=== PATIENT | male | born 1940 | race Caucasian/White ===

== ENCOUNTER 2016-11-10 20:03 | Inpatient (IN) | payer MEDICARE ==
[~2016-11-10] VITALS: Ht 167.6 cm; Wt 75.2 kg
[~2016-11-10 20:03] MED LIST: ASPIRIN 81 MG E81 MG PO; BUMEX2 MG PO; CO Q-10100 MG PO; COLACE100 MG PO; CORDARONE200 MG PO; COUMADIN5 MG PO; COUMADIN7.5 MG PO; FLUTICASONE PRO16 GM NASAL; GLUCOSAMINE HC500 MG PO; K-DUR20 MEQ PO; LASIX20 MG PO; LOFIBRA134 MG PO; NORCO 10/325 TA1 TA1 PO; PACERONE100 MG PO; PRADAXA150 MG PO; PRAVACHOL20 MG PO; TOPROL XL25 MG PO; ULTRAM50 MG PO; VITAMIN D31000 UNI2 PO; ZESTORETIC 20/21 TAB PO; ZYLOPRIM100 MG PO; ZYRTEC-D T1 TAB.SR . PO
[2016-11-10 21:21] LABS: ALBUMIN 3.1 g/dL (3.4-5.0); ANION GAP 15.5 mmol/L (8-16); BILIRUBIN - TOTAL 0.6 mg/dL (0.2-1.3); CALCIUM 8.3 mg/dL (8.5-10.1); CREATININE - SERUM 3.4 mg/dL (0.6-1.3); PROTEIN - SERUM 7.2 g/dL (6.4-8.2)
[2016-11-10 21:23] LABS: POTASSIUM - SERUM 6.5 mmol/L (3.5-5.1)
[2016-11-10 21:27] LABS: BASOPHILS 0.3 % (0.0-2.0); HEMATOCRIT 28.5 % (42.0-54.0); IMMATURE GRANULOCYTES 0.3 % (0-5); LYMPHOCYTES 26.4 % (15-50); MCH 24.6 pg (26.0-34.0); MCHC 31.6 g/dL (31.0-37.0); MCV 77.9 fL (80.0-100.0); MONOCYTES 15.7 % (2-11); NEUTROPHILS 53.3 % (40-80); PLATELET COUNT 296 10x3/uL (130-400); RBC 3.66 10x6/uL (4.20-6.10); RDW 17.8 % (11.5-14.5); WBC 5.7 10x3/uL (4.8-10.8)
[2016-11-10 22:04] LABS: APPEARANCE CLEAR (CLEAR); BILIRUBIN NEGATIVE (NEGATIVE); COLOR YELLOW (YELLOW); GLUCOSE NEGATIVE (NEGATIVE); KETONE NEGATIVE (NEGATIVE); LEUKOCYTE ESTERASE NEGATIVE (NEGATIVE); NITRITE NEGATIVE (NEGATIVE); PROTEIN NEGATIVE (NEGATIVE); UROBILINOGEN NORMAL (NORMAL)
--- NOTE | 2016-11-10 22:30 | NUR ---
RECEIVED TO ROOM 2125 ALERT AND ORIENTED X3 75 Y/O MALE SEEN BY DR SALGADO FORHYPERKALEMIA AND RENAL FAILURE VIA W/C FROM ER. FAMILY MEMBEERS AT SIDE, ONE TO STAY THE NIGHT.ASSIST TO BED W/O DIFF. VSS, TELEMETRY PLACED, SHOWING HR PACED, WITH PACEMAKER ON LEFT. LEFT AC SL INTACT NO R/S NOTED AT SITE. UP AD FREDA W/O DIFF. WELL HEALING SORES NOTED TO BACK AND RT SIDE.PATIENT STATES "THATS WHERE I HAD THE SHINGLES" VOICES NO C/O PAIN OR DISCOMFORT AT THIS TIME. DOES USE CPAP AT NIGHT AT HOME. DOES NOT HAVE HERE IN HOSPITAL. O2 @ 2L NC PLACED ON AT THIS TIME. CONTINUE TO MONITOR.
[2016-11-11] VITALS (7 sets, daily range): BP systolic 97–124; BP diastolic 51–63; Ht 167.6 cm; Wt 75.2 kg
--- NOTE | 2016-11-11 01:45 | NUR ---
EYES CLOSED, RESP UNLAB, NO S/S OF ACUTE DISTRESS NOTED. C/L IN REACH. CONTINUE TO MONITOR.
[2016-11-11 05:10] LABS: ALBUMIN 2.9 g/dL (3.4-5.0); ANION GAP 16.1 mmol/L (8-16); BILIRUBIN - TOTAL 0.73 mg/dL (0.2-1.3); CALCIUM 8.7 mg/dL (8.5-10.1); CARBON DIOXIDE 21.6 mmol/L (21.0-32.0); CREATININE - SERUM 3.1 mg/dL (0.6-1.3); POTASSIUM - SERUM 5.7 mmol/L (3.5-5.1); PROTEIN - SERUM 6.7 g/dL (6.4-8.2)
--- NOTE | 2016-11-11 06:45 | NUR ---
RECEIVED PT REPORT. NO CO PAIN AT THIS TIME. WILL CONTINUE PLAN OF CARE. NO OTHER NEEDS.
--- NOTE | 2016-11-11 07:41 | NUR ---
PT IS ALERT. ASSESSMENT DONE PER FLOWSHEET. NO OTHER NEEDS AT THIS TIME. WILL CONTINUE TO MONITOR.
--- NOTE | 2016-11-11 21:44 | NUR ---
INITIAL ROUNDS COMPLETED AT 1915 HRS. FAMILY AT BEDSIDE. ASSESSMENT COMPLETED AT 1930 HRS. VSS. SR PER CM HR 74. O2 2LNC. LUNGS DIMINISHED IN BASES BILAT. IV TO LAC WITH NS AT 50CC/HR. IV PATENT. TRACE PEDAL EDEMA NOTED. ALERT AND ORIENTED. PM MEDS GIVEN. PT CURRETNLY RESTING WITH EYES CLOSED. RESP EVEN AND REGULAR. SR UP X2, CALL LIGHT WITHIN REACH.
--- NOTE | 2016-11-11 23:58 | NUR ---
PT AWAKE; DENIES ANY DISCOMFORT. WILL CONTINUE TO MONITOR.
[2016-11-12 00:04] VITALS: BP 116/57
--- NOTE | 2016-11-12 01:48 | NUR ---
PT RESTING WITH EYES CLOSED. RESP EVEN AND REGULAR. SR UP X2, CALL LIGHT WITHIN REACH.
--- NOTE | 2016-11-12 04:37 | NUR ---
PT AWAKE; DENIES ANY DISCOMFORT. WILL CONTINUE TO MONITOR.
[2016-11-12 04:39] VITALS: BP 108/61
[2016-11-12 05:50] LABS: BASOPHILS 0.1 % (0.0-2.0); EOSINOPHILS 0.1 % (0-7); HEMATOCRIT 39.6 % (42.0-54.0); HEMOGLOBIN 12.7 g/dL (13.5-17.5); IMMATURE GRANULOCYTES 0.9 % (0-5); LYMPHOCYTES 5.7 % (15-50); MCH 27.7 pg (26.0-34.0); MCHC 32.1 g/dL (31.0-37.0); MCV 86.5 fL (80.0-100.0); MEAN PLATELET VOLUME 9.6 fL (7.4-10.4); NEUTROPHILS 90.2 % (40-80); PLATELET COUNT 342 10x3/uL (130-400); RBC 4.58 10x6/uL (4.20-6.10); RDW 14.7 % (11.5-14.5); WBC 15.8 10x3/uL (4.8-10.8)
[2016-11-12 06:05] LABS: ANION GAP 8.7 mmol/L (8-16); CALCIUM 9.8 mg/dL (8.5-10.1); CARBON DIOXIDE 39.4 mmol/L (21.0-32.0); CREATININE - SERUM 1.6 mg/dL (0.6-1.3); POTASSIUM - SERUM 4.1 mmol/L (3.5-5.1)
--- NOTE | 2016-11-12 06:43 | NUR ---
VSS THROUGHOUT NIGHT. CAF PER CM. PT DENIED ANY DISCOMFORT. NEEDS MET;WILL CONTINUE TO MONITOR.
[2016-11-12 08:00] VITALS: BP 118/61
[2016-11-12] MEDS ORDERED: FUROSEMIDE40 MG PO (09:19)
--- NOTE | 2016-11-12 09:24 | HP ---
PATIENT: GABI OSWALD MEDICAL RECORD: [id number] ACCOUNT: [id number] LOCATION:[facility] D.2125 : 39 ADMISSION DATE: 11/10/16 HISTORY AND PHYSICAL EXAMINATION HISTORY OF PRESENT ILLNESS: The patient presented to the clinic yesterday with decreased urine output, increased weight gain, constipation. He said he had not voided much all week. He did void at the clinic, was unable to check. He voided on arrival, stated he was feeling better. Obtained baseline labs. In reviewing his labs that came back later that evening, his potassium was found to be significantly elevated and his renal function significantly, he has chronic kidney disease. This had worsened as well. I contacted the patient. He had taken his Lasix and potassium prior to me calling him last night, advised him to go to the ER for evaluation due to the hyperkalemia and ydivc-wb-fksiebg kidney disease. He also complains of abdominal pain. PAST MEDICAL HISTORY: Significant for chronic AFib, labile blood pressure. History of gastrointestinal bleeds, pacemaker placed. 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 Former smoker, quit in 1980. Denies alcohol, admits coffee. FAMILY HISTORY: Brother with colon polyps. Sister with breast cancer. Mother with diabetes and [place]. Father [place], at age 65. Brother [place], at age 57. Also, the patient has a history of pulmonary hypertension, has had bypass surgery, multiple stents, left lower lobe lobectomy secondary to benign process, 1981. MEDICATIONS: Listed as allopurinol 100 mg daily, amiodarone 100 mg daily, aspirin 81 mg daily, vitamin D 5000 units daily, docusate sodium 100 mg b.i.d., and hydrochlorothiazide/lisinopril 12.5/10 daily. ALLERGIES: CEFDINIR. REVIEW OF SYSTEMS: GENERAL: Admits 10 plus pound weight gain. HEENT: Denies cephalgia, visual changes, tinnitus, epistaxis or dysphagia. CARDIOVASCULAR: Denies chest pain, denies palpitations. History of chronic atrial fibrillation. PULMONARY: Denies hemoptysis, denies night sweats. GASTROINTESTINAL: Denies hematemesis, hematochezia or melena. GENITOURINARY: Admits decreased urine output as noted above. MUSCULOSKELETAL: No acute changes. ENDOCRINE: Denies polyuria, polydipsia or polyphagia. PHYSICAL EXAMINATION: VITAL SIGNS: Temperature 97.5, blood pressure 116/53, heart rate 70, respirations 18, and O2 sats 97%. GENERAL: Alert and oriented, no present distress. HEENT: Head is normocephalic, atraumatic. Eyes: Pupils are equally round and reactive to light and accommodation. Extraocular muscles intact. Conjunctiva was not injected. Ears: Canals patent, TMs are intact. Nose: Nares patent without drainage. Throat: No erythema, no exudates. HISTORY AND PHYSICAL [id number] OSWALDJOSE C LANRY DIAL NECK: Supple. No lymphadenopathy. No JVD. HEART: Irregularly irregular, rate controlled. LUNGS: Clear to auscultation bilaterally. ABDOMEN: Distended, hypoactive bowel sounds. EXTREMITIES: Present times 4. Mild edema bilateral lower extremities. NEUROLOGIC: No focal deficits. SKIN: Warm and dry. No rash. LABORATORY DATA: Chemistry shows a sodium of 133, potassium 5.7, potassium was 6.5 in the ER, Lasix 40 mg IV given, significant improvement. Chloride is 101, bicarbonate 21.6, BUN 63, creatinine 3.1, glucose 91, calcium 8.7, AST 35, ALT 17, and alkaline phosphatase 50. Urinalysis yellow, clear. CBC: White count 5.7, hemoglobin 9, hematocrit 28.5, and platelets 296. ASSESSMENT AND PLAN: 1. Fozle-kg-otpfras renal insufficiency. 2. Anemia of chronic disease with history of gastrointestinal bleed and peptic ulcer disease. We will check stool for occult blood. 3. Abdominal distention. CT abdomen without IV contrast, with oral contrast only. 4. Hyperkalemia. Repeat IV Lasix times 1, resume Bumex, monitor weights. Accurate I's and O's. The patient will also be set up for nephrology evaluation as outpatient. 5. Chronic atrial fibrillation. Resume home medications. 6. Hypertension. Discontinue lisinopril, resume other medicines. Lisinopril is discontinued because of the hyperkalemia. Supportive care. TRANSINT:[id number] Voice Confirmation ID: [id number] DOCUMENT ID: [id number] MAHOGANY AUGUSTIN DO at 0924 CC: [id number] DICTATION DATE: 11/11/16 1521 SWISS TYPE SCREW MACHINE OPERATOR: 11/11/16 1933 ADM IN [facility] [address] [id number]
--- NOTE | 2016-11-12 11:20 | DS ---
PATIENT:GABI OSWALD :38 MEDICAL RECORD: [id number] DISCHARGE SUMMARY ADMISSION DATE: 11/10/16 DISCHARGE DATE: DATE OF ADMISSION: 11/10/2016 DATE OF DISCHARGE: 11/12/2016 ADMISSION DIAGNOSES: Cvvto-wm-ibhrjhk renal failure insufficiency, hyperkalemia, anemia of chronic disease, abdominal distention, chronic atrial fibrillation and hypertension. DISCHARGE DIAGNOSES: Rzehv-xp-oqlweoo renal insufficiency, hyperkalemia, resolved; abdominal distention, ascites, portal hypertension, chronic atrial fibrillation, hypertension. HOSPITAL COURSE: The patient was seen in the clinic on Sunday, was found to have worsening renal function and potassium of 6.9 with multiple comorbidities. He was contacted as soon as possible and counseled to go to the ER, recheck in admission, presented potassium remained, was found to be at 6.5, creatinine was 3.4. Chest x-ray showed a pleural effusions. His weight was up approximately 10 pounds. He had had no urine output all week. He was given IV Lasix q.12. I's and O's monitored, had good urine output, continued to improve, was feeling much better. He is anxious to be discharged with his abdominal distention. A CT was obtained with oral contrast only. Again, findings of cirrhotic liver, likely from chronic disease. Denies any significant alcohol use, had ascites, bilateral pleural effusions. The patient is feeling much better. He is anxious to go home. Discharged in significantly improved condition. VITAL SIGNS ON DISCHARGE: Temperature 98.2, blood pressure is 118/61, heart rate 80, respirations 16, O2 sats 96% room air. HEART: Irregularly irregular, but rate controlled. LUNGS: Clear. ABDOMEN: Distention significantly improved. LABORATORY DATA: H&H is 12.7 and 39.6, platelets 342. Chemistry shows sodium of 130, potassium 4.1, chloride 86, bicarbonate 39.4, BUN 48, creatinine 1.6 DISPOSITION: The patient is discharged home. Medication record reviewed. DISCHARGE MEDICATIONS: Per med rec. DISCHARGE INSTRUCTIONS: The patient will follow up discharge, he will bring all his home meds. We have discontinued the lisinopril due to his hyperkalemia. Recheck labs on . He will do daily weights, call with any weight fluctuation greater than 5 pounds in either direction. Counseled the patient on his multiple comorbidities and importance of followup. The patient and family expressed understanding and will be seen in the clinic on . Please see chart for further details. TRANSINT:[id number] Voice Confirmation ID: [id number] DOCUMENT ID: [id number] DISCHARGE SUMMARY REPORT [id number] GABI OSWALD ROBERT DO at 1120 CC: [id number] DICTATION DATE: 11/12/16928 RELAY CHECKER: 11/12/16 1044 ADM IN [facility] [address] [place] [address]
[2016-11-12 11:25] VITALS: BP 107/54
--- NOTE | 2016-11-12 11:28 | NUR ---
Patient Name: GABI OSWALD Admission Status: ER Accout number: [id number] Admission Date: 11-10-2016 : 1940 Admission Diagnosis: Attending: TYRA Current LOS: 2 Anticipated DC Date: 11/12/16 Planned Disposition: HOME Primary Insurance: MEDICARE A & B Discharge Planning Comments: CM MET WITH PATIENT, SON AND DTR IN LAW REGARDING DCP NEEDS. PATIENT AND FAMILY STATE DISCHARGE PLAN IS TO RETURN HOME WITH , SON, DTR IN LAW AND OTHER FAMILY THAT LIVE IN HOME TOGETHER. [facility] HOME ENVIRONMENT IS SAFE. DENIES NEED FOR HOME HEALTH SERVICES OR DME. [facility] PRIOR TO HOSPITALIZATION PATIENT WAS INDEPENDENT WITH ALL ADL'S AND IAD'S EXCEPT MEAL PREP AND MEDICATION SET UP. [facility] PATIENT WAS ABLE TO MEDICATIONS CORRECTLY UTILIZING WEEKLY MED BOX THAT FAMILY SET UP. [facility] PATIENT JUST STOPPED DRIVING A WEEK PRIOR TO HOSPITALIZATION. CM WILL CONITNUE TO FOLLOW AND ASSIST NEEDED WITH DCP / NEEDS. Is the patient Alert and Oriented? Yes 0 * How many steps to enter\exit or inside your home? 4 0 * PCP DEMETRIA 0 * Pharmacy [facility] [place] 0 * Preadmission Environment Home with Family 0 * ADLs Partial Dependent 0 * Partial ADLs (Assistance needed) Medication Management 0 * Equipment Cane CPAP Shower Chair Wheelchair 0 * Other Equipment SHOWER BARS, HAND HELD SHOWER 0 * List name and contact numbers for known caregivers / representatives who currently or will assist patient after discharge: SPOUSE, DARRON OSWALD [phone] SON, JAMEEL OSWALD [phone] 0 * Community resources currently utilized None 0 * Additional services required to return to the preadmission environment? No 0 * Can the patient safely return to the preadmission environment? Yes 0 * Has this patient been hospitalized within the prior 30 days at any hospital? No Principal Database Developer: Bernadette Michel
--- NOTE | 2016-11-12 15:17 | NUR ---
ALERT AND ORIENTED X4. FAMILY AT BEDSIDE. DENIES PAIN OR SOB. DISCHARGE INSTRUCTIONS GIVEN VERBALLY AND WRITTEN. DISCHARGE PAPERS SIGNED ON CHART. DC LT AC IV TIP INTACT. ESCORT TO RIDE VIA WHEELCHAIR. REMAINS FREE FROM INJURY.
== END 2016-11-12 15:19 | disposition home or self-care (01) | DRG 683 ==
LOC: D.ER 20:03 → D.M2 22:00
PROVIDERS: Emergency Medicine; ADMIT Family Medicine
DX: N17.9 Acute kidney failure, unspecified (principal); R18.8 Other ascites; K76.6 Portal hypertension; E87.5 Hyperkalemia; I12.9 Hypertensive chronic kidney disease with stage 1 through stage 4 chronic kidney disease, or unspecified chronic kidney disease; N18.9 Chronic kidney disease, unspecified; I48.2 Chronic atrial fibrillation; D63.8 Anemia in other chronic diseases classified elsewhere; K74.60 Unspecified cirrhosis of liver; K59.00 Constipation, unspecified; Z95.0 Presence of cardiac pacemaker; Z87.891 Personal history of nicotine dependence

== ENCOUNTER 2016-11-22 05:46 | Outpatient (CLI) | payer MEDICARE ==
[~2016-11-22] VITALS: Ht 167.6 cm; Wt 68.2 kg
--- NOTE | ~2016-11-22 | HEMODYNAMI ---
PATIENT:GABI OSWALD MEDICAL RECORD: [id number] : 38 LOCATION:[facility] ADMISSION DATE: 11/22/16 Generatedon:11/22/20168:47 Patient name: GABI OSWALD Patient #: [id number] SSN: : 1940 Date of study: 11/22/2016 Page: Of Hemodynamic Procedure Report Patient Data Patient Demographics Procedure consent was obtained First Name: GABI Gender: Male Last Name: MARGRET : 1940 [facility] Initial: DANELLE Age: 75 year(s) Patient #: [id number] Race: Unknown Additional ID: [id number] Contact details Address: [address] [address] State: [place] City: [place] Zip code: [address] Past Medical History Allergies Allergen Reaction Date Comments Reported Cephalosporins 11/22/2016 Admission Admission Data Admission Date: 11/22/2016 Admission Time: 5:46 Weight (lbs.): 150 Weight (kg.): 68.04 Procedure Procedure Types Cath Procedure Peripheral Cath Diagnostic Procedure Cath Peripheral Miscellaneous PARACENTESIS WITH GUIDE Procedure Description Procedure Date Procedure Date: 11/22/2016 Procedure Start Time: 8:24 Procedure Staff Name Function Rachell Hickman RN Nurse Candace Neff RT Maintenance Controller Candace Neff RT Monitor Leon Dickerson RT Scrub Willard Narvaez MD Performing Physician Trudi Arcos RN Nurse Procedure Medications Medication Administration Route Dosage Oxygen NC 3 l/min Versed I.V. 1 mg Fentanyl I.V. 50 mcg Hemodynamics Rest Heart Rate: 66 (bpm) Snapshots Pre Cath Intra NCS Post Cath Vital Signs Time Heart Resp SPO2 NIBP (mmHg) Rhythm Pain Sedation Rate (ipm) (%) Status Level (bpm) 8:19:30 72 21 93 Measuring NSR 0 (11) 10(A) , No pain 8:20:02 72 18 95 114/76(89) NSR 0 (11) 10(A) , No pain 8:24:22 71 19 96 129/70(108) NSR 0 (11) 10(A) , No pain 8:28:37 66 15 94 118/61(91) NSR 0 (11) 9(A) , No pain 8:32:46 64 16 98 114/59(98) NSR 0 (11) 9(A) , No pain 8:36:54 60 14 99 123/62(100) NSR 0 (11) 9(A) , No pain 8:41:10 65 49 99 120/56(96) NSR 0 (11) 10(A) , No pain Medications Time Medication Route Dose Verified Delivered Reason Notes Effectivenes s by by 8:23:45 Fentanyl I.V. 50 Rachell Rachell for mcg King MAURISIO Hickman RN sedation 8:23:45 Versed I.V. 1 mg Rachell Rachell for King MAURISIO Hickman RN sedation 8:24:00 Oxygen NC 3 Rachell Rachell Per l/min King MAURISIO Hickman RN protocol Procedure Log Time Note 8:16:25 Patient Weight : 150 kg 8:17:09 Time tracking: Regular hours 8:17:18 Plan of Care:Hemodynamics will remain stable., Cardiac rhythm will remain stable., Comfort level will be maintained., Respiratory function will remain adequate., Patient/ family verbilizes understanding of procedure., Procedure tolerated without complication., Recovers from procedure without complications.. 8:17:25 Patient received from Outpatients to IR Alert and oriented. Tansferred to table in Supine position. 8:17:33 Signed procedure consent form obtained from patient. 8:17:39 ECG and BP/O2 sat monitors applied to patient. 8:17:40 Vital chart was started 8:17:42 Baseline sample Acquired. 8:17:43 Full Disclosure recording started 8:17:45 8:17:51 H&P Date Dictated: 11/22/2016 Within 30 days and on chart.. 8:17:54 Pre-op teaching completed and patient verbalized understanding. 8:17:54 Pre-procedure instructions explained to patient. 8:17:58 Family in waiting room. 8:18:01 Patient NPO since Midnight. 8:18:20 Patient allergic to Cephalosporins 8:18:28 Patient diabetic? No. 8:18:31 8:18:33 ----Pre-sedation anethsthesia assessment.---- 8:18:36 Previous problem with sedation/anesthesia? No ? 8:18:51 Is patient on blood thinner?Yes 8:18:59 Snore? Yes 8:19:02 Sleep apnea? Yes 8:19:07 Deviated septum? No 8:19:13 Opens mouth fully? Yes 8:19:16 Sticks out tongue? Yes 8:19:23 Airway obstruction? Yes cad 8:19:29 Dentures? No ? 8:19:30 8:19:42 IV patent on arrival in right forearm with 0.9% NaCl at [facility]. 8:19:55 Right abdomen area was prepped with chlora-prep and draped in sterile fashion 8:20:05 Alarms reviewed by Olesya Doss 8:20:06 Sharps counted by scrub and verified by Shekhar 8:20:08 8:23:21 Physician arrived 8:23:34 Final Timeout: patient, procedure, and site verified with staff and physician. All members of the team are in agreement. 8:23:34 --------ALL STOP TIME OUT------ 8:23:45 Fentanyl 50 mcg I.V. was administered by Rachell Hickman RN; for sedation; 8:23:45 Versed 1 mg I.V. was administered by Rachell Hickman RN; for sedation; 8:23:46 Physical assessment completed. ASA score P 3 - A patient with severe systemic disease as per Willard Narvaez MD. 8:23:53 Sedation plan: IV Moderate Sedation Versed, Fentanyl 8:24:00 Oxygen 3 l/min NC was administered by Rachell Hickman RN; Per protocol; 8:24:04 Procedure started. 8:24:10 Local anesthetic to Abdominal area with Lidocaine 1% by Willard Narvaez MD.INITIAL ACCESS ONLY 8:24:51 [id number] 8FR CATH DRAIN TRAY opened to sterile field. 8:38:16 Dermabond Pen opened to sterile field. 8:38:17 CONNECTING TUBE FOR DRAINAGE BAG opened to sterile field. 8:38:36 2.3 liters drained from abdomen 8:42:33 Procedure ended.(Physican Out) 8:43:40 Procedure and supply charges have been captured, reviewed, submitted and are correct. 8:44:30 Vital chart was stopped 8:44:36 Full Disclosure recording stopped Device Usage Item Name Manufacture Quantity Catalog Hospital Part Current Mini mal Lot# / Number Charge Number Stock Stock Serial# Code [id number] CareFusion 1 [id number] 8FR CATH DRAIN TRAY Dermabond Pen Ethicon 1 [id number] 5 CONNECTING TUBE Alpine 1 [id number] 5 FOR DRAINAGE Scientific BAG Signature Audit Curtis Stage Time Signature Unsigned Intra-Procedure 11/22/2016 [facility] 8:44:27 AM RT(R) (R) (CV) 11/22/2016 8:46:39 AM Intra-Procedure 11/22/2016 Candace Neff 8:47:47 AM RT(R) Signatures Monitor : Candace Neff RT Signature : Date : Time : [address] [place] [address]
[~2016-11-22 05:46] MED LIST changes: +FUROSEMIDE40 MG PO
[2016-11-22 07:22] LABS: BASOPHILS 0.4 % (0-2); EOSINOPHILS 2.2 % (0-7); HEMATOCRIT 25.3 % (42.0-54.0); HEMOGLOBIN 7.7 g/dL (13.5-17.5); IMMATURE GRANULOCYTES 0.2 % (0-5); LYMPHOCYTES 22.2 % (15-50); MCH 24.2 pg (26.0-34.0); MCHC 30.4 g/dL (31.0-37.0); MCV 79.6 fL (80.0-100.0); MEAN PLATELET VOLUME 8.3 fL (7.4-10.4); PLATELET COUNT 244 10x3/uL (130-400); RBC 3.18 10x6/uL (4.20-6.10); RDW 20.3 % (11.5-14.5)
[2016-11-22 07:32] LABS: ANION GAP 11.6 mmol/L (8-16); CALCIUM 8.4 mg/dL (8.5-10.1); CARBON DIOXIDE 29.4 mmol/L (21.0-32.0); CREATININE - SERUM 2.2 mg/dL (0.6-1.3)
[2016-11-22 07:33] LABS: APTT 34.5 SECONDS (22.8-39.4); INR 1.34 (0.85-1.17); PROTIME 16.5 SECONDS (11.6-15.0)
[2016-11-22 07:56] VITALS: BP 117/80; Ht 167.6 cm; Wt 68.2 kg
[2016-11-22] MEDS ORDERED: FUROSEMIDE40 MG PO (08:00)
--- NOTE | 2016-11-22 09:16 | NUR ---
0900-RECD TO ROOM 2511 FROM [facility]. POST CT GUIDED PARACENTESIS. R LOWER ABD DRESSING DRY AND INTACT. DENIES PAIN/NAUSEA. IV PATENT. RESP WITH EASE.
--- NOTE | 2016-11-22 09:57 | NUR ---
0673-PHONE ORDERS RECD FROM DR SALGADO FOR 2 UNITS PRBCS TODAY.
--- NOTE | 2016-11-22 16:03 | NUR ---
1100 SEE BLOOD TRANSFUSION NOTES FOR FUTHER V.S.
--- NOTE | 2016-11-22 16:25 | NUR ---
1115 SEE BLOOD TRANSFUSION SHEETS FOR V.S. RECORDS 1130 RECORDINGS, RATE INCREASED TO 150/CC/HR. PT. DENIES PROBLEMS 1200 PT. DOSING. IV SITE PATENT 1215 LUNCH LEFT AT BEDSIDE 1245 PT AWAKE, EATING LUNCH. 1345 UP TO BR VOIDS QS. 2ND UNIT CHECKED AT BEDSIDE INITIATED BY ALARIS PUMP AT 50/CC/HR 1400 RATE INCREASED TO 125/CC/HR 1415 NO PROBLEMS, RATE INCREASED TO 150/CC/HR 1430 UP TO BR VOIDS 1445 DOSING IV SITE PATENT 1615 BLOOD HAS COMPLETED LINE BEING FLUSHED WITH NS. FAMILY AT BEDSIDE.
--- NOTE | 2016-11-22 17:36 | NUR ---
1715 POST V.S. CHECK WNL FOR THIS PT. IV DC'D WITH CATH INTACT. PT UP TO BR VOIDS. DC INST. REVIEWED. [facility] HAS AN APPT. WITH DR. AUGUSTIN THIS SUNDAY FOR FOLLOW UP. RELEASED IN WC. WITH GRANDDAUGHTER.
== END 2016-11-22 17:20 | disposition home or self-care (01) ==
LOC: D.OPS 05:46 → D.CT 08:00 → D.OPS 08:00 → D.CT 15:00 → D.OPS 17:20
PROVIDERS: General Practice
DX: R18.8 Other ascites (principal)

== ENCOUNTER 2017-03-07 08:43 | Outpatient (CLI) | payer MEDICARE ==
[~2017-03-07] VITALS: Ht 167.6 cm; Wt 67.4 kg
[2017-03-07 10:24] VITALS: BP 115/63; Ht 167.6 cm; Wt 67.4 kg
[2017-03-07 11:01] LABS: ANION GAP 10.4 mmol/L (8-16); CALCIUM 8.4 mg/dL (8.5-10.1); CARBON DIOXIDE 32.4 mmol/L (21.0-32.0); POTASSIUM - SERUM 3.8 mmol/L (3.5-5.1)
--- NOTE | 2017-03-07 11:15 | NUR ---
BUMEX DRIP AND DOBUTREX DRIP STARTED PER PUMP AND CHECKED WITH PHARMACY. ALUMINUM POLISHER IN PLACE AND VSS. IV LEFT HAND- PATENT- NO SWELLING NOTED. URINALS X 2 GIVEN, AT SIDE
--- NOTE | 2017-03-07 11:30 | NUR ---
INFUSION CONTINUES PER PUMP WITHOUT DIFFICULTY, VSS, PT DENIES NEEDS.
--- NOTE | 2017-03-07 12:09 | NUR ---
2GM NA DIET SERVED, DENIES FURTHUR NEEDS, IV CONT PER PUMP. VSS
--- NOTE | 2017-03-07 12:21 | NUR ---
250CC URINE OUT, 100% OF TRAY CONSUMED, DENIES FURTHUR NEEDS
--- NOTE | 2017-03-07 13:30 | NUR ---
RESTING WITH EYES CLOSED, IV INFUSIONS CONTINUE PER PUMP WITH OUT DIFFICULTY. VSS
--- NOTE | 2017-03-07 14:30 | NUR ---
400CC OUT, COLA GIVEN, FAMILY AT SIDE, VSS. INFUSION CONTINUES PER PUMP.
--- NOTE | 2017-03-07 15:30 | NUR ---
450CC OUT. WATCHING TV WITH FAMILY, DENIES NEEDS.
--- NOTE | 2017-03-07 16:30 | NUR ---
NO CHANGES, INFUSION CONT.
--- NOTE | 2017-03-07 17:30 | NUR ---
2GM NA DIET SERVED. DENIES FURTHUR NEEDS
--- NOTE | 2017-03-07 19:15 | NUR ---
INFUSION COMPLETE, IV D'C WITH CATH TIP INTACT. VSS, FAMILY AT SIDE
--- NOTE | 2017-03-07 19:45 | NUR ---
TOTAL URINE OUTPUT-2750CC TODAY. WEIGHT 145.8 FOR A TOTAL LOSS OF 2.4 LBS. VSS. WILL D'C HOME WITH FAMILY WITH D'C INSTRUCTIONS GIVEN AND UNDERSTOOD.
== END 2017-03-07 19:45 | disposition home or self-care (01) ==
LOC: D.CATH 08:43
PROVIDERS: Internal Medicine Interventional Cardiology
DX: I50.9 Heart failure, unspecified (principal); I42.9 Cardiomyopathy, unspecified

== ENCOUNTER 2017-03-22 11:52 | Inpatient (IN) | payer MEDICARE ==
[2017-03-22] VITALS (20 sets, daily range): BP systolic 98–124; BP diastolic 46–65; BMI 23.7
[~2017-03-22] VITALS: Ht 167.6 cm; Wt 66.7 kg
--- NOTE | ~2017-03-22 | HP ---
PATIENT: GABI OSWALD MEDICAL RECORD: [id number] ACCOUNT: [id number] LOCATION:D.[id number] : 38 ADMISSION DATE: 03/22/17 HISTORY AND PHYSICAL EXAMINATION HISTORY OF PRESENT ILLNESS: The patient presents with extreme fatigue, progressive shortness of breath, near syncopal event last night, and pain with urination. PAST MEDICAL HISTORY: Significant for chronic AFib, labile blood pressure, history of GI bleeds, history of chronic anemia, chronic kidney disease, pacemaker, nonalcoholic cirrhosis, and ascites. 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 Former smoker, quit in 1980. No history of alcohol. FAMILY HISTORY: Brother with colon polyps. Sister with breast cancer. Mother with diabetes and heart disease. Brother with [place], at age 57. Father with heart disease, at age 65. CURRENT MEDICATIONS: Amiodarone 200 mg half tablet twice a day, aspirin 81 mg daily, fenofibrate 160 mg daily, Lasix 40 mg twice daily, metoprolol 25 mg twice daily, and tramadol 50 mg p.r.n. ALLERGIES: CEFDINIR. REVIEW OF SYSTEMS: GENERAL: Mild increase in weight, no change in appetite. HEENT: No cephalgia, visual changes, tinnitus, epistaxis or dysphagia. CARDIOVASCULAR: Extensive history as above. Gradual increased shortness of breath. Denies chest pain. PULMONARY: Denies hemoptysis. Denies night sweats. GASTROINTESTINAL: Denies hematemesis, hematochezia or melena. He has a history of recurrent ascites, has had multiple paracentesis, gradual weight gain, also has umbilical hernia. GENITOURINARY: Admits to dysuria or difficulty urinating times 2 days. MUSCULOSKELETAL: No acute changes. ENDOCRINE: Denies polyuria, polydipsia or polyphagia. PHYSICAL EXAMINATION: VITAL SIGNS: Weight 153, blood pressures 120/68, heart rate 80, respirations 18, and temperature 97.6. GENERAL: Alert, oriented and ill appearance. Eyes sunken, appearance of chronic disease. HEENT: Head is normocephalic, atraumatic. Eyes: Pupils are equally round and reactive, slight ashen appearance to face. Nose: Nares patent, no drainage. Throat: No erythema, no exudates. NECK: Supple. No JVD. HEART: Regular rate and rhythm. LUNGS: Clear. Breathing is nonlabored. ABDOMEN: Soft, mild to moderate ascites, umbilical hernia. EXTREMITIES: Present times 4, no edema. NEUROLOGIC: No focal deficits. SKIN: Warm and dry. No rash. HISTORY AND PHYSICAL [id number] GABI OSWALD LABORATORY DATA: CBC: White count 11,900, hemoglobin 8.2, hematocrit 28, and platelets 285. ASSESSMENT AND PLAN: With the patient's ill appearance, near syncopal event last night, multiple comorbidities, he is admitted. Blood cultures obtained. UA, urine cultures, type and cross, transfused 2 units of packed red blood cells, premedicate with Tylenol 325 mg p.o. times 1 and Benadryl 25 mg p.o. times 1. Give Lasix 40 mg IV between units. CMP on admission. Abdominal ultrasound. Stool for occult blood times 2. Resume home medications. Invanz 1 g IV daily. Monitor labs. Electrolytes. TRANSINT:[id number] Voice Confirmation ID: [id number] DOCUMENT ID: [id number] MAHOGANY AUGUSTIN DO CC: [id number] DICTATION DATE: 03/22/17 1149 STEEL WHEEL ENGRAVER: 03/22/17 1228 ADM IN [facility] [address] [place] [address]
[2017-03-22 12:45] LABS: APPEARANCE CLEAR (CLEAR); BILIRUBIN NEGATIVE (NEGATIVE); COLOR DK YELLOW (YELLOW); GLUCOSE NEGATIVE (NEGATIVE); KETONE NEGATIVE (NEGATIVE); LEUKOCYTE ESTERASE NEGATIVE (NEGATIVE); NITRITE NEGATIVE (NEGATIVE); PROTEIN NEGATIVE (NEGATIVE); SPECIFIC GRAVITY 1.015 (1.005-1.020); UROBILINOGEN NORMAL (NORMAL)
[2017-03-22 13:01] LABS: ALBUMIN 3.1 g/dL (3.4-5.0); ANION GAP 11.2 mmol/L (8-16); BILIRUBIN - TOTAL 2.16 mg/dL (0.2-1.3); CALCIUM 8.7 mg/dL (8.5-10.1); CARBON DIOXIDE 29.7 mmol/L (21.0-32.0); CREATININE - SERUM 2.3 mg/dL (0.6-1.3); POTASSIUM - SERUM 3.9 mmol/L (3.5-5.1)
--- NOTE | 2017-03-22 13:30 | NUR ---
L FOREARM IV SITED, PT TOLERATED WITH MINIMAL DISCOMFORT, TEGADERM DRSG APPLIED, CLEAN, DRY AND INTACT.
--- NOTE | 2017-03-22 14:00 | NUR ---
TELEMETRY IN PLACE CON'T A. FIB 64 BPM.
--- NOTE | 2017-03-22 14:00 | NUR ---
2L O2 VIA NASAL CANNULA IN PLACE.
--- NOTE | 2017-03-22 18:45 | NUR ---
1ST UNIT PRBC COMPLETE, NS RUNNING. PLM NURSE WILL TRANSFUSE 2ND UNIT. FAMILY AT BEDSIDE. NO SIGNS OF ACUTE DISTRESS. VSS. BED IN LOWEST POSITION, SIDE RAILS UP X 2, CALL LIGHT WITH REACH.
[2017-03-23 01:22] VITALS: BP 113/58
[2017-03-23 04:00] VITALS: BP 98/60
[2017-03-23 04:27] LABS: BASOPHILS 0.1 % (0-2); EOSINOPHILS 1.7 % (0-7); HEMOGLOBIN 9.6 g/dL (13.5-17.5); IMMATURE GRANULOCYTES 0.5 % (0-5); LYMPHOCYTES 13.6 % (15-50); MCH 25.7 pg (26.0-34.0); MCV 80.2 fL (80.0-100.0); MEAN PLATELET VOLUME 8.8 fL (7.4-10.4); MONOCYTES 14.4 % (2-11); NEUTROPHILS 69.7 % (40-80); PLATELET COUNT 227 10x3/uL (130-400); RBC 3.74 10x6/uL (4.20-6.10); RDW 16.8 % (11.5-14.5); WBC 7.7 10x3/uL (4.8-10.8)
[2017-03-23 04:40] LABS: ALBUMIN 2.7 g/dL (3.4-5.0); ANION GAP 8.5 mmol/L (8-16); BILIRUBIN - TOTAL 4.3 mg/dL (0.2-1.3); CALCIUM 8.1 mg/dL (8.5-10.1); CARBON DIOXIDE 32.4 mmol/L (21.0-32.0); CREATININE - SERUM 2.1 mg/dL (0.6-1.3); POTASSIUM - SERUM 3.9 mmol/L (3.5-5.1); PROTEIN - SERUM 6.2 g/dL (6.4-8.2)
--- NOTE | 2017-03-23 04:58 | NUR ---
RESTING WITHOUT DISTRESS.CALL LIGHT IN REACH
--- NOTE | 2017-03-23 07:30 | NUR ---
REPORT RECEIVED FROM PAYABLE PROCESSOR NURSE. CALL LIGHT IN REACH.
--- NOTE | 2017-03-23 09:07 | NUR ---
ASSESSMENT COMPLETED. AMIODARONE PO. SCDs TO BLE. CALL LIGHT IN REACH. WILL CONTINUE WITH PLAN OF CARE.
[2017-03-23 09:23] VITALS: BP 118/59
--- NOTE | 2017-03-23 11:30 | NUR ---
PT AOX4 RESP EVEN AND NONLABORED LUNG SOUNDS CLEAR PT DENIES NEEDS AT THIS TIME PT HERE FOR FOR ANEMIA FOR THIS VISIT IV TO LEFT FOREARM PATENT AND INTACT AT THIS TIME SRX2 BED AT LOWEST SETTING CALL LIGHT WITHIN REACH WILL CONTINUE TO MONITOR
--- NOTE | 2017-03-23 11:59 | NUR ---
IV MERREM ADMINISTERED. VIT D PO. STATES HIS LEFT NOSTRIL IS STOPPED UP AND HE NEEDS SOMETHING TO USE THE BR. WILL NOTIFY DR. AUGUSTIN.
[2017-03-23 13:04] VITALS: Ht 167.6 cm; Wt 66.7 kg
[2017-03-23 13:23] VITALS: BP 113/77
--- NOTE | 2017-03-23 13:40 | NUR ---
NO NEEDS VOICED AT THIS TIME. FAMILY AT BEDSIDE. CALL LIGHT IN REACH.
--- NOTE | 2017-03-23 15:26 | NUR ---
SPOKE WITH DR. AUGUSTIN ABOUT PATIENT'S CONCERNS. NEW ORDERS PLACED RECEIVED.
--- NOTE | 2017-03-23 15:52 | NUR ---
COLACE AND MILK OF MAG PO. STOOL SAMPLE COLLECTED AND SENT TO LAB. FAMILY IN ROOM. CALL LIGHT IN REACH.
[2017-03-23 17:27] VITALS: BP 115/57
--- NOTE | 2017-03-23 17:56 | NUR ---
LASIX 40 MG PO. NO NEEDS VOICED AT THIS TIME. FAMILY IN ROOM. CALL LIGHT IN REACH.
--- NOTE | 2017-03-23 18:10 | NUR ---
NO CHANGES IN INITIAL ASSESSMENT. CALL LIGHT IN REACH. SCDs TO BLE. WILL CONTINUE WITH PLAN OF CARE.
--- NOTE | 2017-03-23 19:30 | NUR ---
PATIENT IS ALERT AND ORIENTED X'S 4. RESPIRATIONS ARE EVEN AND UNLABORED. PATIENT IS STANDING UP, STEADY, TALKING WITH HIS NURSE LEODAN CLEVELAND. PATIENT DENIES NEEDS. NO SIGNS OF DISTRESS NOTED.
[2017-03-23 20:00] VITALS: BP 154/58
[2017-03-24] VITALS (12 sets, daily range): BP systolic 107–144; BP diastolic 58–70
--- NOTE | 2017-03-24 03:02 | NUR ---
TELEMETRY INFORMED NURSE PATIENT IS HAVE BUNDLE BRANCH BLOCKS AFTER MEASURING TELEMETRY STRIPS.
[2017-03-24 04:43] LABS: BASOPHILS 0.3 % (0-2); EOSINOPHILS 1.2 % (0-7); HEMATOCRIT 28.9 % (42.0-54.0); HEMOGLOBIN 9.3 g/dL (13.5-17.5); IMMATURE GRANULOCYTES 0.3 % (0-5); LYMPHOCYTES 13.4 % (15-50); MCH 25.9 pg (26.0-34.0); MCHC 32.2 g/dL (31.0-37.0); MCV 80.5 fL (80.0-100.0); MEAN PLATELET VOLUME 8.9 fL (7.4-10.4); MONOCYTES 13.2 % (2-11); NEUTROPHILS 71.6 % (40-80); PLATELET COUNT 230 10x3/uL (130-400); RBC 3.59 10x6/uL (4.20-6.10); RDW 17.4 % (11.5-14.5)
[2017-03-24 05:01] LABS: ALBUMIN 2.8 g/dL (3.4-5.0); BILIRUBIN - TOTAL 1.2 mg/dL (0.2-1.3); CALCIUM 8.1 mg/dL (8.5-10.1); CARBON DIOXIDE 27.7 mmol/L (21.0-32.0); MAGNESIUM - SERUM 2.5 mg/dL (1.8-2.4); PHOSPHOROUS 2.5 mg/dL (2.5-4.9); POTASSIUM - SERUM 3.7 mmol/L (3.5-5.1); PROTEIN - SERUM 6.1 g/dL (6.4-8.2)
[2017-03-24 05:02] LABS: CREATININE - SERUM 1.5 mg/dL (0.6-1.3)
--- NOTE | 2017-03-24 05:21 | NUR ---
DR SALGADO PAGED FOR CRITICAL AMMONIA LEVEL
--- NOTE | 2017-03-24 05:23 | NUR ---
DR MARQUIS RETURNED CALL, STATED THAT HE WILL TREAT IT WHEN HE GET TO HOSPITAL.
--- NOTE | 2017-03-24 07:40 | NUR ---
AWAKE AND ALERT AT THIS TIME. SCD'S ON AND IN WORKING ORDER. RESPIRATIONS EVEN AND NON LABORED WITH OXYGEN ON 2L VIA NC. CALL LIGHT IN REACH, DENIES NEEDS AT THIS TIME. WILL CONTINUE WITH PLAN OF CARE.
[2017-03-24] MEDS ORDERED: AMOXICILLIN500 M1 PO (09:23)
[2017-03-24] MEDS ORDERED: PROTONIX40 MG PO (09:24)
[2017-03-24] MEDS ORDERED: CHRONULAC30 ML PO (09:24)
--- NOTE | 2017-03-24 10:50 | NUR ---
BLOOD TRANSFUSION STARTED AT THIS TIME PER ORDER. BLOOD CONSENT SIGNED AND BLOOD WITNESSED BY MAURISIO AGGARWAL. AT BEDSIDE. IV TO LEFT FOREARM CHECKED FOR PATENCY AND NO S/S OF INFILTRATION PRESENT. VITAL SIGNS STABLE. WILL CONTINUE WITH MONITORING.
--- NOTE | 2017-03-24 13:29 | NUR ---
1 UNIT OF PRBC COMPLETE AT THIS TIME. PAGED DR MARQUIS REGARDING PT'S OXYGEN REQUIREMENTS AND DOESN'T WEAR OXYGEN AT HOME.
--- NOTE | 2017-03-24 15:39 | NUR ---
22G IV TO LEFT FOREARM D/C WITH CATH TIP INTACT. AWAITING ARRIVAL OF OXYGEN SO THAT HE CAN D/C HOME.
--- NOTE | 2017-03-24 17:14 | NUR ---
OXYGEN DELIVERED. PT D/C HOME AT THIS TIME.
--- NOTE | 2017-03-24 17:40 | NUR ---
NEW MEDICATIONS CALLED INTO [facility] [address]. SPOKE WITH PAVITHRA PHARMACIST.
--- NOTE | 2017-03-24 20:20 | NUR ---
LATE ENTRY 1350 OCTAVIO TELEPHONED BY PRIMARY NURSE, ELPIDIO, FOR OXYGEN PORTABLE AND STATIONARY UNITS. PATIENT IS FOR DISCHARGE TO HOME. HE HAD CPAP AT HOME W/ [facility]. CM SPOKE WITH THE PATIENT AND HIS AT THE BEDSIDE. THEY WISH TO HAVE OXYGEN THRU [facility]. TC TO PROVIDER. SPOKE WITH THE HONING MACHINE TRY OUT SETTER, JERSON . PROVIDED REFERRAL INFORMATION. PROVIDED CONTACT PHONE NUMBER TO DISCUSS DELIVERY WITH PATIENT AND OR/ FAMILY. AD[address]ESS [address] IN [place] [phone]. PATIENT'S ROOM AIR O2 SAT AT REST WAS 88%. PATIENT IS ON 2/L OXYGEN VIA NASAL CANNULA. FAXED FACE SHEET W/ REBEL, ORDER AND CLINICAL. PORTABLE UNIT WAS DELIVERED TO THE HOSPITAL. PATIENT TO CALL WHEN HE REACHES HOME FOR DELIVERY OF THE PORTABLE UNIT.
== END 2017-03-24 17:15 | disposition home or self-care (01) | DRG 812 ==
LOC: D.MS 11:52
PROVIDERS: Family Medicine; ADMIT Family Medicine
DX: D64.9 Anemia, unspecified (principal); K72.90 Hepatic failure, unspecified without coma; K74.60 Unspecified cirrhosis of liver; R30.0 Dysuria; I48.2 Chronic atrial fibrillation; N18.9 Chronic kidney disease, unspecified; Z95.0 Presence of cardiac pacemaker; K42.9 Umbilical hernia without obstruction or gangrene

== ENCOUNTER 2017-03-30 11:23 | Outpatient (CLI) | payer MEDICARE ==
[~2017-03-30] VITALS: Ht 167.6 cm; Wt 65.9 kg
[~2017-03-30 11:23] MED LIST changes: +AMOXICILLIN500 M1 PO; +CHRONULAC30 ML PO; +PROTONIX40 MG PO
[2017-03-30 12:08] LABS: BASOPHILS 0.4 % (0-2); EOSINOPHILS 3.2 % (0-7); HEMATOCRIT 32.4 % (42.0-54.0); HEMOGLOBIN 10.3 g/dL (13.5-17.5); IMMATURE GRANULOCYTES 0.7 % (0-5); LYMPHOCYTES 16.8 % (15-50); MCH 26.6 pg (26.0-34.0); MCHC 31.8 g/dL (31.0-37.0); MCV 83.7 fL (80.0-100.0); MONOCYTES 11.2 % (2-11); NEUTROPHILS 67.7 % (40-80); PLATELET COUNT 265 10x3/uL (130-400); RBC 3.87 10x6/uL (4.20-6.10); RDW 19.3 % (11.5-14.5); WBC 5.6 10x3/uL (4.8-10.8)
[2017-03-30 12:17] LABS: APTT 32.9 SECONDS (22.8-39.4); INR 1.16 (0.85-1.17); PROTIME 14.6 SECONDS (11.6-15.0)
[2017-03-30 12:31] LABS: ALBUMIN 2.9 g/dL (3.4-5.0); ANION GAP 10.4 mmol/L (8-16); BILIRUBIN - TOTAL 0.84 mg/dL (0.2-1.3); CALCIUM 8.5 mg/dL (8.5-10.1); CARBON DIOXIDE 29.4 mmol/L (21.0-32.0); CREATININE - SERUM 1.4 mg/dL (0.6-1.3); POTASSIUM - SERUM 3.8 mmol/L (3.5-5.1); PROTEIN - SERUM 6.5 g/dL (6.4-8.2)
[2017-03-30 13:34] VITALS: BP 123/64; Ht 167.6 cm; Wt 65.9 kg
[2017-03-30] MEDS ORDERED: BAYER CHEWABLE81 MG PO (13:51)
--- NOTE | 2017-03-30 15:15 | NUR ---
ASSIST PT UP TO BATHROOM W/O ANY PROBS
--- NOTE | 2017-03-30 16:25 | NUR ---
PIV DC W/CATHETER NO REDNESS NOR SWELLING NOTED DC TEACHING COMPLETE PT VU
--- NOTE | 2017-03-30 16:35 | NUR ---
PT DC HOME VIA WC ESCORTED OUT BY ELMER CHEW RN W/DAUGHTER DRIVING AT PT SIDE
== END 2017-03-30 16:35 | disposition home or self-care (01) ==
LOC: D.OPS 11:23 → D.CT 13:00 → D.SP 13:45 → D.CT 14:00 → D.OPS 16:35
PROVIDERS: Radiology Diagnostic Radiology
DX: R18.8 Other ascites (principal); I10 Essential (primary) hypertension; I25.10 Atherosclerotic heart disease of native coronary artery without angina pectoris; Z01.812 Encounter for preprocedural laboratory examination

== ENCOUNTER 2017-04-09 07:52 | Inpatient (IN) | payer MEDICARE ==
[~2017-04-09] VITALS: Ht 167.6 cm; Wt 65.6 kg
[~2017-04-09 07:52] MED LIST changes: +BAYER CHEWABLE81 MG PO
[2017-04-09 09:02] VITALS: BP 124/72; BMI 23.6
[2017-04-09 10:04] LABS: BASOPHILS 0.8 % (0-2); EOSINOPHILS 2.7 % (0-7); HEMATOCRIT 33.4 % (42.0-54.0); HEMOGLOBIN 10.4 g/dL (13.5-17.5); IMMATURE GRANULOCYTES 0.2 % (0-5); LYMPHOCYTES 19.8 % (15-50); MCH 26.9 pg (26.0-34.0); MCHC 31.1 g/dL (31.0-37.0); MCV 86.3 fL (80.0-100.0); MEAN PLATELET VOLUME 9.1 fL (7.4-10.4); MONOCYTES 16.6 % (2-11); NEUTROPHILS 59.9 % (40-80); PLATELET COUNT 231 10x3/uL (130-400); RBC 3.87 10x6/uL (4.20-6.10); RDW 20.6 % (11.5-14.5); WBC 5.2 10x3/uL (4.8-10.8)
[2017-04-09 10:16] LABS: ANION GAP 12.5 mmol/L (8-16); CALCIUM 9.3 mg/dL (8.5-10.1); CARBON DIOXIDE 29.8 mmol/L (21.0-32.0); CREATININE - SERUM 1.3 mg/dL (0.6-1.3); INR 1.07 (0.85-1.17); POTASSIUM - SERUM 4.3 mmol/L (3.5-5.1); PROTIME 13.7 SECONDS (11.6-15.0)
--- NOTE | 2017-04-09 13:28 | NUR ---
PT RECEIVED TO ROOM 2136, VIA BED, FROM [facility], RECEIVED BEDSIDE REPORT FORM CHARLENE FORDE FROM [facility]. CHEST TUBE NOTED TO RT FLANK AREA PT PLACED ON CONT INTERMITTENT SUCTION AT THIS TIME. CHEST TUBE DRAINIG A SMALL AMOUNT OF BLOODY FLUID. PT DENIES ANY PAIN, ORIENTED PT TO ROOM AND CALL LIGHT. FAMILY AT BEDSIDE NAD NOTED, WLL CONTINUE TO MONITOR.
[2017-04-09 14:34] VITALS: BP 137/66; BMI 23.6
[2017-04-09 14:52] LABS: BASOPHILS 0.5 % (0-2); EOSINOPHILS 3.8 % (0-7); HEMATOCRIT 32.6 % (42.0-54.0); HEMOGLOBIN 10.3 g/dL (13.5-17.5); IMMATURE GRANULOCYTES 0.2 % (0-5); LYMPHOCYTES 25.7 % (15-50); MCH 27.4 pg (26.0-34.0); MCHC 31.6 g/dL (31.0-37.0); MCV 86.7 fL (80.0-100.0); MEAN PLATELET VOLUME 9.4 fL (7.4-10.4); NEUTROPHILS 57.8 % (40-80); PLATELET COUNT 212 10x3/uL (130-400); RBC 3.76 10x6/uL (4.20-6.10); RDW 20.6 % (11.5-14.5); WBC 4.4 10x3/uL (4.8-10.8)
--- NOTE | 2017-04-09 15:03 | NUR ---
CALLED PHARMACY AND SPOKE WITH TOMÁS, INFORMED HER THAT I NEED AMOXICILLIN FOR PT NOT IN PYXIS.
[2017-04-09 15:09] LABS: ANION GAP 12.6 mmol/L (8-16); CALCIUM 8.3 mg/dL (8.5-10.1); CARBON DIOXIDE 28.4 mmol/L (21.0-32.0); CREATININE - SERUM 1.2 mg/dL (0.6-1.3)
--- NOTE | 2017-04-09 17:00 | NUR ---
PAGED EHR TRAINER FOR DR. [facility]. WAITING ON THEM TO CALL BACK. 1710- RECEIVED CALL BACK FROM DR. MARQUIS, INFOMRED PT THAT PT WEARS C-PAP AT NIGHT AND DID NOT BRING IT BECAUSE HE DID NOT KNOW THAT HE WAS GOING TO BE ADMITTED. RECEIVED NEW ORDER FOR 2-3 L OF O2 TO KEEP SAT LEVELS ABOVE 90%.
--- NOTE | 2017-04-09 17:00 | NUR ---
POST PROCEDURE VITAL ON CHART.
[2017-04-09 17:08] LABS: LYMPH - BF 97 %; MACROPHAGES BF 2 %; NEUT - BF 1 %
[2017-04-09 17:18] VITALS: BP 99/44
[2017-04-09 19:00] VITALS: BP 126/58
--- NOTE | 2017-04-09 19:31 | NUR ---
RECEIVED REPORT, WILL ASSUME CARE OF PT, ASKING FOR WARM BLANKET, WILL GIVE, DENIES ANY OTHER NEEDS AT THIS TIME, BED IS LOW, SRX2, CALL LIGHT IN REACH, WILL CONTINUE PLAN OF CARE
[2017-04-10] VITALS (18 sets, daily range): BP systolic 101–130; BP diastolic 44–87; Ht 167.6 cm; Wt 65.6 kg
--- NOTE | 2017-04-10 02:55 | NUR ---
CALL LIGHT IN REACH, WILL CONTINUE WITH PLAN OF CARE.
--- NOTE | 2017-04-10 04:45 | NUR ---
ASSESSMENT COMPLETE,SEE FLOWSHEET, PT SLEEPING, CALL LIGHT IN REACH, WILL CONTINUE PLAN OF CARE
[2017-04-10 09:41] LABS: BASOPHILS 0.4 % (0-2); EOSINOPHILS 0.4 % (0-7); IMMATURE GRANULOCYTES 0.3 % (0-5); LYMPHOCYTES 9.9 % (15-50); MCH 27.3 pg (26.0-34.0); MCHC 31.6 g/dL (31.0-37.0); MCV 86.4 fL (80.0-100.0); MEAN PLATELET VOLUME 9.1 fL (7.4-10.4); MONOCYTES 16.4 % (2-11); NEUTROPHILS 72.6 % (40-80); PLATELET COUNT 204 10x3/uL (130-400); RDW 20.6 % (11.5-14.5)
--- NOTE | 2017-04-10 10:00 | NUR ---
PT LEFT FOR CT SCAN.
[2017-04-10 10:13] LABS: HEMATOCRIT 24.7 % (42.0-54.0); HEMOGLOBIN 7.8 g/dL (13.5-17.5); RBC 2.86 10x6/uL (4.20-6.10); WBC 7.5 10x3/uL (4.8-10.8)
--- NOTE | 2017-04-10 10:21 | NUR ---
PT BACK FROM CT. PT RESTING QUIETLY AND DENIES ANY CURRENT PAIN OR NEEDS. WILL CTM.
--- NOTE | 2017-04-10 10:50 | NUR ---
CLAMPED PTS CHEST TUBE TOLD BY DR.MCCARLYS GAYLE RN. PT WILL BE TRANSFERRED TO ICU. CALLED [facility] AND AWAITING A ROOM NUMBER. EXPLAINED SITUATION TO PT AND FAMILY AND THEY VERBALIZED UNDERSTANDING. BELONGINGS BEING COLLECTED. WILL CTM.
--- NOTE | 2017-04-10 11:04 | NUR ---
REPORT CALLED TO BOBBY FORDE OF ICU. TRANSFERRING PT TO UNIT NOW. NO FURTHER NEEDS.
--- NOTE | 2017-04-10 11:36 | NUR ---
1130 PT RECIEVED IN ICU AFTER REPORT RECIEVED.. PT IS AWAKE ALERT AND ORIENTED X 3.. THERE IS A CHEST TUNE ON THE RIGHT LATERAL RIBS CLAMPED AT THIS TIME BLOODY DRAINAGE IS IN THE TUBING.. LEFT PIV SALINE LOCKED ... DR ASH IS IN UNIT AND ORDERS RECIEVED AT THIS TIME.. 1145 NIECE BUFFY IN TO SEE PT UDPATE IS GIVEN PT DENIES C/O AT THIS TIME
[2017-04-10 13:17] LABS: HEMATOCRIT 24.4 % (42.0-54.0); HEMOGLOBIN 7.7 g/dL (13.5-17.5)
--- NOTE | 2017-04-10 13:36 | NUR ---
1200 AND DAUGHTER IN TO SEE PT AND UPDATE IS GIVEN.. 1215 MEDS GIVEN AND PERMIT FOR BLOOD TRANSFUSION SIGNED BY PT AT THIS TIME.. LUNCH SERVED AND PT IS FEEDING SELF.. CONTINUES TO EDDIE SOB AND STATES MINIMAL PAIN 1300 LAB IN TO DRAW BLOOD FOR T AND C 1330 DR ASH IN TO SEE PT SPEAKING [facility] AT THE [facility]..
--- NOTE | 2017-04-10 14:55 | NUR ---
1430 PT USING URINAL .. CONTINUES WITHOUT C/O SOB OR PAIN..
--- NOTE | 2017-04-10 17:28 | NUR ---
1530 PRBC FIRST UNIT HUNG.. INFUSING INTO THE LEFFT PIV.. 1630 PRBC CONTINUE.. DIET SERVED .. I AND O DONE ... DR DEMETRIA NEILED UNIT AND UPDATE GIVEN ON PHONE TO HIM 1700 DR PALACIO IN TO SEE PT AND UPDATE IS GIVEN.. 1730 DIET EATEN PT REMAINS WITHOUT C/O AT THIS TIME...
--- NOTE | 2017-04-10 19:15 | NUR ---
REPORT RECIEVED.ASSESSMENT COMPLETE PER FKOW SHEET. PT DENIES PAIN OR NEEDS. VSS. WILL CONTINUE TO MONIOTR
--- NOTE | 2017-04-10 23:05 | NUR ---
REASSESSMENT COMPLETE PER FLOW SHEET. VSS. NO NEW CHANGES. WILL CONTINUE TO MOIOTR
[2017-04-11] VITALS (25 sets, daily range): BP systolic 103–130; BP diastolic 42–70
--- NOTE | 2017-04-11 03:15 | NUR ---
REASSESSMENT COMPLETE PER FLOW SHEET. VSS NO NEW CHANGES. WILL CONTINUE TO MONITOR
[2017-04-11 03:36] LABS: BASOPHILS 0.3 % (0-2); EOSINOPHILS 0.8 % (0-7); IMMATURE GRANULOCYTES 0.3 % (0-5); LYMPHOCYTES 13.4 % (15-50); MCH 27.9 pg (26.0-34.0); MCHC 32.8 g/dL (31.0-37.0); MEAN PLATELET VOLUME 9.1 fL (7.4-10.4); MONOCYTES 16.5 % (2-11); NEUTROPHILS 68.7 % (40-80); RBC 3.41 10x6/uL (4.20-6.10); RDW 18.7 % (11.5-14.5); WBC 7.1 10x3/uL (4.8-10.8)
[2017-04-11 03:37] LABS: HEMOGLOBIN 9.5 g/dL (13.5-17.5); PLATELET COUNT 145 10x3/uL (130-400)
[2017-04-11 03:43] LABS: APTT 36.6 SECONDS (22.8-39.4); INR 1.23 (0.85-1.17); PROTIME 15.4 SECONDS (11.6-15.0)
[2017-04-11 03:56] LABS: ALBUMIN 2.6 g/dL (3.4-5.0); ANION GAP 11.8 mmol/L (8-16); BILIRUBIN - TOTAL 1.86 mg/dL (0.2-1.3); CALCIUM 8.3 mg/dL (8.5-10.1); CARBON DIOXIDE 28.4 mmol/L (21.0-32.0); CREATININE - SERUM 1.4 mg/dL (0.6-1.3); MAGNESIUM - SERUM 1.7 mg/dL (1.8-2.4); PHOSPHOROUS 3.3 mg/dL (2.5-4.9); POTASSIUM - SERUM 4.2 mmol/L (3.5-5.1); PROTEIN - SERUM 6.1 g/dL (6.4-8.2); THYROID STIMULATING HORMONE 7.07 uIU/mL (0.36-3.74)
--- NOTE | 2017-04-11 07:15 | NUR ---
REC'D REPORT AND RESUMED CARE, AAO, VSS, DENIES PAIN, O2 VIA 2L NC, SAT 96%, RIGHT FLANK WITH CHEST TUBE, DRESSING CDI, CLAMPED TUBING WITH SEROSANGUINESS DRAINAGE, ASSESSMENT COMPLETED PER FLOWSHEET, SELF REPOSITIONS, CALL LIGHT IN REACH, VOICES NO NEEDS AT THIS TIME
--- NOTE | 2017-04-11 07:27 | CN ---
PATIENT NAME:GABI OSWALD MEDICAL RECORD: [id number] : 38 LOCATION:[id number] ADMIT DATE: 04/09/17 ACCOUNT: [id number] CONSULTING PHYSICIAN: MAHOGANY AUGUSTIN DO REFERRING PHYSICIAN: AMANDA BARKER MD DATE OF CONSULTATION: 04/10/2017 HISTORY OF PRESENT ILLNESS: A 76-year-old male. The patient was admitted for outpatient procedure, thoracentesis, for significant pleural effusion, developed pneumothorax, chest tube was placed. The patient was admitted for interventional radiology consult for medical management. PAST MEDICAL HISTORY: Significant for chronic AFib, labile blood pressure, history of gastrointestinal bleed, anemia of chronic disease, chronic kidney disease, pacemaker, nonalcoholic cirrhosis, recurrent ascites and recurrent pleural effusions, the patient has had numerous thoracenteses and paracenteses, therapeutic; has congestive heart failure with systolic dysfunction, last echo with 30% ejection fraction. CURRENT MEDICATIONS: Listed as amiodarone 200 mg half tablet twice a day, aspirin 81 mg daily, fenofibrate 160 mg daily, Lasix 40 mg twice a day, metoprolol and tramadol. FAMILY HISTORY: Brother with colon polyps. Sister with breast cancer. Mother with diabetes and heart disease. Brother with ME, at age 57. Father heart disease, at age 65. ALLERGIES: CEFDINIR. REVIEW OF SYSTEMS: GENERAL: No reported change in weight. HEENT: No cephalgia, visual changes, tinnitus, epistaxis, or dysphagia. CARDIOVASCULAR: CHF with systolic dysfunction, chronic dyspnea on exertion. PULMONARY: Reported dry heaves coughing up blood overnight, none since early a.m. The patient had thoracentesis yesterday with pneumothorax. Chest tube in place, hooked to drain. GASTROINTESTINAL: Denies hematemesis, hematochezia, or melena. GENITOURINARY: Denies dysuria. MUSCULOSKELETAL: No acute changes. ENDOCRINE: Denies polyuria, polydipsia, or polyphagia. PHYSICAL EXAMINATION: VITAL SIGNS: Temp 99.9, blood pressure is 103/52, heart rate 86, respirations 20 and O2 sats 90% room air. GENERAL: Alert and oriented, no present distress, feels much better than he did last night. HEENT: Head is normocephalic and atraumatic. Eyes: Pupils are equally round, reactive to light and accommodation. Extraocular muscles are intact. Conjunctivae not injected. Ears: Canals patent. Nose: Nares patent. Throat: No erythema. NECK: Supple. No lymphadenopathy and no JVD. HEART: Regular, heart murmur unchanged. LUNGS: Good air movement, right chest tube in place. ABDOMEN: Soft and nontender. EXTREMITIES: Present times 4. CONSULT REPORT [id number] GABI OSWALD NEUROLOGIC: Intact. IMAGING: CT-guided right thoracentesis showed a large right effusion with trapped lung, ruptured bleb noted after coughing, chest tube placed. Post-procedure x-ray with significant improvement in right pleural effusion with definite pneumothorax not clearly identified. EKG, right bundle-branch block, rate of 70. LABORATORY DATA: CBC: White count 4.4, hemoglobin stable at 10.3, hematocrit 32.6 and platelets 212. PTT is 31.8. Chemistry shows a sodium of 142, potassium 4.0, chloride 105, bicarbonate 28.4, BUN 19 and creatinine 1.2. ASSESSMENT AND PLAN: 1. Status post thoracentesis with ruptured bleb, chest tube in place. H&H stable. Supportive care. 2. Congestive heart failure, dilated cardiomyopathy with systolic dysfunction, last echo showed an ejection fraction of 30%. 3. Recurrent ascites, had recent paracentesis, asymptomatic presently. 4. Chronic kidney disease. 5. Anemia of chronic disease, stable. Supportive care. Continue current medications. I appreciate this consult. We will follow accordingly. TRANSINT:[id number] Voice Confirmation ID: [id number] DOCUMENT ID: [id number] MAHOGANY AUGUSTIN DO at 0727 CC: [id number] DICTATION DATE: 04/10/17 0757 COSMETIC CHEMIST: 04/10/17 1138 ADM IN [facility] [address] [place] [address]
--- NOTE | 2017-04-11 08:00 | NUR ---
BREAKFAST TRAY TO BED, INDEPENDENT WITH SET UP AND EATING
--- NOTE | 2017-04-11 09:15 | NUR ---
AM MEDS GIVEN, PER MAR FLOWSHEET
--- NOTE | 2017-04-11 10:32 | NUR ---
SLEEPING WITH NO SIGNS OF DISTRESS, VSS
--- NOTE | 2017-04-11 11:00 | NUR ---
NO ACUTE CHANGE FROM PREVIOUS ASSESSMENT, VSS, SELF REPOSITIONED UP AND TO BACK
[2017-04-11 12:11] LABS: HEMOGLOBIN 9.7 g/dL (13.5-17.5)
--- NOTE | 2017-04-11 12:57 | NUR ---
* Is the patient Alert and Oriented? Yes 0 * How many steps to enter\exit or inside your home? 4 0 * PCP Dr. Hunter 0 * Pharmacy [facility] 0 * Preadmission Environment Home with Family 0 * ADLs Independent 0 * Equipment Bedside Commode Cane CPAP Oxygen Rolling Walker Shower Chair 0 * List name and contact numbers for known caregivers / representatives who currently or will assist patient after discharge: Spouse - Cyrus [phone] Daughter - Earnestine Christian [phone] 0 * Additional services required to return to the preadmission environment? No 0 * Can the patient safely return to the preadmission environment? Yes 0 * Has this patient been hospitalized within the prior 30 days at any hospital? Yes Patient Name: GABI OSWALD Admission Status: Elective Accout number: [id number] Admission Date: 04-09-2017 : 1940 Admission Diagnosis:POSTPROCEDURAL PNEUMOTHORAX Attending: AMANDA BARKER Current LOS: 2 Planned Disposition: Home Primary Insurance: MEDICARE A & B Discharge Planning Comments: CM met with patient to assess dc plans/needs. Patient states he lives at home with his . He reports he was independent with ADL's but has progressively gotten weaker. He has home O2 @ 2L, CPAP, seated walker, BSC, Shower Chair, & Cane. He states he has not required the assistive devices for mobility. He thinks he has had home health in the past, but unsure of when and which agency provided care. He is agreeable to home health at discharge, if necessary. CM will follow & assist as needed. Development Manager: Unique Blackwell
--- NOTE | 2017-04-11 13:42 | NUR ---
BATH AND LINEN CHANGE COMPLETED, TOLERATED WITHOUT DIFFICULTY
--- NOTE | 2017-04-11 15:00 | NUR ---
SLEEPING WITH NO SIGN OF DISTRESS, AROUSABLE TO VERBAL STIMULI, VSS, ASSESSMENT COMPLETE PER FLOWSHEET, NO NEEDS AT THIS TIME
--- NOTE | 2017-04-11 16:45 | NUR ---
DINNER TRAY TO BEDSIDE, INDEPENDENT WITH SET UP AND EATING
--- NOTE | 2017-04-11 18:37 | NUR ---
OOB TO BEDSIDE COMMODE, LARGE STOOL TO ROSS, INDEPENDENT WITH SKIN CARE, BTB WITH ASSIST, TOLERATED TRANSFER WITHOUUT DIFFICULTY
--- NOTE | 2017-04-11 19:00 | NUR ---
REPORT RECEIVED. SHIFT ASSESSMENT COMPLETED PER FLOW SHEET, SEE FOR DETAILS. PT LAYING IN BED AWAKE AND ALERT. ORIENTED TO PERSON, TIME, PLACE, AND SITUATION. PERRLA. WEARS GLASSES. 2.5 L 02 VIA NC. S1 S2 PRESENT. RADIAL AND PEDAL PULSES PALPABLE. CAPILLARY REFILL <3 SECS IN UPPER AND LOWER EXTREMITIES BILAT. TELEMETRY MONITORING RATE OF 99. BREATHING PATTERN SHALLOW. RUL&MELLISA BREATH SOUNDS CLEAR, DIMINISHED IN RML, RLL, AND LLL. BS ACTIVE X4. REPORT NO PROBLEMS URINATING. SKIN IS WARM AND DRY. RT SIDE/FLANK INCISION, CHEST TUBE IN PLACE, SCANT AMOUNT OF BLOODY DRAINAGE NOTED, DRESSING CDI. LT WRIST PIV, PATENT. SEE FLOW SHEET FOR COMPLETE ASSESSMENT. INSTRUCTED PT TO PUSH RED NURSE BUTTON IF HE NEEDED ANYTHING, HE VERBALIZED UNDERSTANDING. CALL LIGHT WITHIN REACH. BED IN LOWEST POSITION. WILL CONTINUE TO MONITOR.
--- NOTE | 2017-04-11 20:05 | NUR ---
PT MACHINE TESTER LIGHT. WATER WITH ICE PROVIDED PER REQUEST. DENIES FURTHER NEEDS AT THIS TIME. CALL LIGHT AND BELONGINGS WITHIN REACH. WILL CONTINUE TO MONITOR.
[2017-04-11 20:08] LABS: HEMATOCRIT 28.9 % (42.0-54.0)
--- NOTE | 2017-04-11 20:40 | NUR ---
PT WAX CUTTER LIGHT. ASSISTED TO BEDSIDE COMMODE. SOFT BROWN STOOL NOTED. ASSISSTED PT BACK IN BED. DENIES FURTHER NEEDS. CALL LIGHT WITHIN REACH. BED IN LOWEST POSITION. WILL CONTINUE TO MONITOR.
--- NOTE | 2017-04-11 21:06 | NUR ---
MEDS ADMINISTERED PER EMAR. DENIES NEEDS AT THIS TIME. CALL LIGHT WITHIN REACH. BED IN LOWEST POSITION. WILL CONTINUE TO MONITOR.
--- NOTE | 2017-04-11 21:49 | NUR ---
ASSISSTED PT ON BEDSIDE COMMODE. CALL LIGHT WITHIN REACH. WILL CONTINUE TO MONITOR.
--- NOTE | 2017-04-11 21:55 | NUR ---
ASSISSTED PT BACK TO BED. SMALL AMOUNT OF SOFT BROWN STOOL NOTED. DENIES FURTHER NEEDS. CALL LIGHT WITHIN REACH. BED IN LOWEST POSITION. WILL CONTINUE TO MONITOR.
--- NOTE | 2017-04-11 22:20 | NUR ---
WATER PROVIDED PER PT REQUEST. DENIES FURTHER NEEDS. CALL LIGHT WITHIN REACH. WILL CONTINUE TO MONITOR.
--- NOTE | 2017-04-11 23:00 | NUR ---
REASSESSMENT COMPLETED PER FLOW SHEET, SEE FOR DETAILS. NO ACUTE CHANGES NOTED. VSS. DENIES NEEDS AT THIS TIME. WILL CONTINUE TO MONITOR.
--- NOTE | 2017-04-11 23:30 | NUR ---
PT MANAGER PHARMACY LIGHT, ASSISSTED HIM TO BEDSIDE TO USE URINAL. 200 MLS OF YELLOW URINE NOTED. ASSISSTED BACK IN BED. DENIES FURTHER NEEDS. WILL CONTINUE TO MONITOR.
[2017-04-12] VITALS (24 sets, daily range): BP systolic 102–127; BP diastolic 33–87
--- NOTE | 2017-04-12 01:20 | NUR ---
PT ALLIANCES CONSULTANT LIGHT ASSISSTED HIM TO SIDE OF BED TO USE URINAL. 325 MLS OF YELLOW URINE NOTED. ASSISSTED HIM BACK IN BED. WILL CONTINUE TO MONITOR. CALL LIGHT WITHIN REACH. BED IN LOWEST POSITION.
--- NOTE | 2017-04-12 02:05 | NUR ---
PT MOUNTER HAND LIGHT ASSISSTED HIM TO BEDSIDE COMMODE. SMALL SOFT BOWEL MOVEMENT NOTED. ASSISSTED HIM BACK IN BED. DENIES FURTHER NEEDS. WILL CONTINUE TO MONITOR.
--- NOTE | 2017-04-12 03:00 | NUR ---
REASSESSMENT COMPLETED PER FLOW SHEET, SEE FOR DETAILS. NO ACUTE CHANGES NOTED. PT DENIES NEEDS AT THIS TIME. WILL CONTINUE TO MONITOR.
[2017-04-12 03:47] LABS: BASOPHILS 0.1 % (0-2); EOSINOPHILS 1.1 % (0-7); HEMATOCRIT 26.5 % (42.0-54.0); HEMOGLOBIN 8.6 g/dL (13.5-17.5); IMMATURE GRANULOCYTES 0.4 % (0-5); LYMPHOCYTES 9.4 % (15-50); MCHC 32.5 g/dL (31.0-37.0); MCV 86.3 fL (80.0-100.0); MEAN PLATELET VOLUME 8.9 fL (7.4-10.4); MONOCYTES 18.3 % (2-11); NEUTROPHILS 70.7 % (40-80); PLATELET COUNT 138 10x3/uL (130-400); RBC 3.07 10x6/uL (4.20-6.10); RDW 18.9 % (11.5-14.5); WBC 7.5 10x3/uL (4.8-10.8)
[2017-04-12 04:05] LABS: ALBUMIN 2.4 g/dL (3.4-5.0); ANION GAP 9.6 mmol/L (8-16); BILIRUBIN - TOTAL 1.4 mg/dL (0.2-1.3); CARBON DIOXIDE 30.4 mmol/L (21.0-32.0); CREATININE - SERUM 1.4 mg/dL (0.6-1.3); MAGNESIUM - SERUM 1.8 mg/dL (1.8-2.4); PHOSPHOROUS 3.3 mg/dL (2.5-4.9)
--- NOTE | 2017-04-12 04:20 | NUR ---
PT IRONWORKER HELPER SHOP LIGHT ASSISTED TO BEDSIDE TO USE URINAL. 300 MLS OF YELLOW URINE NOTED. ASSISSTED PT BACK IN BED. DENIES FURTHER NEEDS WILL CONTINUE TO MONITOR. CALL LIGHT WITHIN REACH.
--- NOTE | 2017-04-12 05:00 | NUR ---
PT LAYING IN BED RESTING NO DISTRESS NOTED. WILL CONTINUE TO MONITOR.
--- NOTE | 2017-04-12 06:00 | NUR ---
NO VISITORS AT THIS TIME. PT RESTING IN BED. NO DISTRESS NOTED. WILL CONTINUE TO MONITOR.
--- NOTE | 2017-04-12 07:30 | NUR ---
SHIFT ASSESSMENT COMPLETED. PATIENT STATES HE IS ONLY HAS A SMALL AMOUNT OF PAIN UPON MOVEMENT. PATIENT STATES HE FEELS BETTER.
--- NOTE | 2017-04-12 09:55 | NUR ---
20G IV STARTED IN RIGHT FA FOR IV DYE PER RADIOLOGY REQUEST. IV STARTED WITH ASEPTIC TECH USED X1 STICK WITH GOOD BLOOD RETURN NOTED, AND FLUSHED EASILY.
--- NOTE | 2017-04-12 09:56 | NUR ---
NUTRITION F/U CHART REVIEWED, PT VISIT. NURSING REPORTS PT WITH GOOD PO INTAKE REG DIET THIS AM. WILL CONTINUE TO PROVIDE DIET, HONOR FOOD PREFERENCES. RD FOLLOWING
--- NOTE | 2017-04-12 10:10 | NUR ---
RADIOLOGY HERE TO TRANSPORT PATIENT FOR CT.
--- NOTE | 2017-04-12 10:45 | NUR ---
PATIENT RETURNED FROM CT. RECONNECTED TO MONITOR. V/S WITHIN NORMAL LIMITS. PATIENT DENIES ANY NEEDS AT THIS TIME.
--- NOTE | 2017-04-12 11:10 | NUR ---
PATIENT REPOSITIONED FOR SKIN CARE AND COMFORT. PATIENT MOVES ALL EXTREMITIES EXCEPT R ARM IS FLACCID. PATIENT WILL NOT FOLLOW COMMANDS. WILL MAKE EYE CONTACT BUT WILL NOT FOLLOW. PATIENT IS IN VIEW OF NURSES STATION, BED IN LOW POSITION.
[2017-04-12 11:18] LABS: ANA REFLEX - DIRECT Negative (Negative)
--- NOTE | 2017-04-12 15:39 | NUR ---
FAMILY AT BEDSIDE PATIENT DENIES ANY NEEDS AT THIS TIME.
--- NOTE | 2017-04-12 19:00 | NUR ---
REPORT RECEIVED. SHIFT ASSESSMENT COMPLETED PER FLOW SHEET. PT LAYING IN BED. AWAKE AND ALERT. ORIENTED TO PERSON, TIME, PLACE, AND SITUATION. 2.5 L 02 VIA NC. S1 S2 PRESENT. RADIAL AND PEDAL PULSES PALP. CAPILLARY REFILL <3 SECS UPPER AND LOWER EXTREMITIES BILAT. TELEMETRY MONITORING RATE OF 102. CLEAR BREATH SOUNDS IN RUL, AND MELLISA. DIMINISHED BREATH SOUNDS IN RML,RLL, AND LL. SKIN WARM AND DRY. RIGHT SIDE/FLANK INCISION, CHEST TUBE IN PLACE, SCANT AMOUNT OF BLOODY DRAINAGE NOTED, DRESSING CDI. LT WRIST PIV, PATENT INFUSING NS @100 MLS/HR. RT FOREARM PIV SALINE LOC. DENIES NEEDS AT THIS TIME. CALL LIGHT WITHIN REACH. BED IN LOWEST POSITION. SEE FLOW SHEET FOR COMPLETE ASESSMENT. WILL CONTINUE TO MONITOR.
--- NOTE | 2017-04-12 20:01 | NUR ---
WATER PROVIDED PER REQUEST. DENIES FURTHER NEEDS. WILL CONTINUE TO MONITOR.
--- NOTE | 2017-04-12 20:37 | NUR ---
MEDS ADMINISTERED PER EMAR. ASSISSTED TO SIDE OF BED TO USE URINAL. CALL LIGHT WITHIN REACH. WILL CONTINUE TO MONITOR.
--- NOTE | 2017-04-12 20:40 | NUR ---
150 MLS OF YELLOW URINE NOTED IN URINAL. PT BACK IN BED LAYING DOWN. DENIES NEEDS. WILL CONTINUE TO MONITOR.
--- NOTE | 2017-04-12 21:40 | NUR ---
PT SOLAR SYSTEM DESIGNER LIGHT, ASSISTED TO BEDSIDE TO USE URINAL. 300 MLS OF URINE NOTED. PT BACK IN BED LAYING DOWN. DENIES FURTHER NEEDS. WILL CONTINUE TO MONITOR.
--- NOTE | 2017-04-12 23:00 | NUR ---
REASESSMENT COMPLETED PER FLOW SHEET. NO ACUTE CHANGES NOTED. SEE FLOW SHEET FOR DETAILS. PT DENIES NEEDS AT THIS TIME. CALL LIGHT WITHIN REACH. BED IN LOWEST POSITION. WILL CONTINUE TO MONITOR.
[2017-04-13] VITALS (24 sets, daily range): BP systolic 97–133; BP diastolic 58–79
--- NOTE | 2017-04-13 01:00 | NUR ---
PT LAYING IN BED RESTING. NO DISTRESS NOTED. WILL CONTINUE TO MONITOR. CALL LIGHT WITHIN REACH. BED IN LOWEST POSITION.
--- NOTE | 2017-04-13 03:00 | NUR ---
REASSESSMENT COMPLETED PER FLOW SHEET. NO ACUTE CHANGES NOTED. SEE FLOW SHEET FOR DETAILS. PT DENIES NEEDS AT THIS TIME. WILL CONTINUE TO MONITOR. CALL LIGHT WITHIN REACH. BED IN LOWEST POSITION.
[2017-04-13 04:39] LABS: BASOPHILS 0.4 % (0-2); EOSINOPHILS 1.7 % (0-7); HEMATOCRIT 29.4 % (42.0-54.0); HEMOGLOBIN 9.3 g/dL (13.5-17.5); IMMATURE GRANULOCYTES 0.1 % (0-5); LYMPHOCYTES 11.2 % (15-50); MCH 27.4 pg (26.0-34.0); MCHC 31.6 g/dL (31.0-37.0); MCV 86.7 fL (80.0-100.0); MEAN PLATELET VOLUME 9.7 fL (7.4-10.4); MONOCYTES 17.8 % (2-11); NEUTROPHILS 68.8 % (40-80); RBC 3.39 10x6/uL (4.20-6.10); RDW 19.3 % (11.5-14.5); WBC 7.5 10x3/uL (4.8-10.8)
[2017-04-13 04:47] LABS: PLATELET COUNT 197 10x3/uL (130-400)
--- NOTE | 2017-04-13 05:00 | NUR ---
PT LAYING IN BED RESTING. NO DISTRESS NOTED. WILL CONTINUE TO MONITOR.
[2017-04-13 05:04] LABS: ANION GAP 9.6 mmol/L (8-16); CALCIUM 8.3 mg/dL (8.5-10.1); CARBON DIOXIDE 30.4 mmol/L (21.0-32.0); CREATININE - SERUM 1.4 mg/dL (0.6-1.3)
--- NOTE | 2017-04-13 09:00 | NUR ---
R CT PLACED TO WATER SEAL AND UNCLAMPED. CANNISTER CHANGED
--- NOTE | 2017-04-13 19:15 | NUR ---
REPORT RECEIVED. SHIFT ASSESSMENT COMPLETED PER FLOW SHEET. PT LAYING IN BED AWAKE AND ALERT. 2 L O2 VIA NC. S1S2 PRESENT. TELEMETRY MONITORING RATE OF 96. RADIAL AND PEDAL PULSES PALP. CAPILLARY REFILL <3 SECONDS UPPER AND LOWER EXTREMITIES. RT SIDE/FLANK AREA INCISION, DRESSING CDI, CHEST TUBE IN PLACE DRAINING SEROSANGUINEOUS FLUID. BS ACTIVE X4. SKIN WARM AND DRY. LT WRIST PIV, PATENT, INFUSING NS AT 100 MLS/HR. RT FOREARM PIV, SALINE LOC. SEE FLOW SHEET FOR COMPLETE ASSESSMENT. CALL LIGHT WITHIN REACH. BED IN LOWEST POSITION. WILL CONTINUE TO MONITOR.
--- NOTE | 2017-04-13 20:19 | NUR ---
PT LAYING IN BED. MEDS ADMINISTERED PER EMAR. PT DENIES NEEDS AT THIS TIME. CALL LIGTH WITHIN REACH. BED IN LOWEST POSITION. WILL CONTINUE TO MONITOR.
--- NOTE | 2017-04-13 21:00 | NUR ---
NO VISITORS AT THIS TIME. ASSISTED PT TO BESIDE TO USE URINAL. 490 MLS OF YELLOW URINE OBTAINED. ASSISSTED PT BACK IN BED. DENIES FURTHER NEEDS. CALL LIGHT WITHIN REACH. BED IN LOWEST POSITION.
--- NOTE | 2017-04-13 23:00 | NUR ---
REASSESSMENT COMPLETED PER FLOW SHEET. NO ACUTE CHANGES NOTED. PT DENIES NEEDS AT THIS TIME. CALL LIGHT WITHIN REACH. BED IN LOWEST POSITION. WILL CONTINUE TO MONITOR.
[2017-04-14] VITALS (15 sets, daily range): BP systolic 101–124; BP diastolic 54–85
--- NOTE | 2017-04-14 01:00 | NUR ---
PT LAYING IN BED RESTING. NO DISTESS NOTED. CALL LIGHT WITHIN REACH. BED IN LOWEST POSITION.
--- NOTE | 2017-04-14 03:00 | NUR ---
REASSESSMENT COMPLETED PER FLOW SHEET, SEE FOR DETAILS. NO ACUTE CHANGES NOTED. VSS. WILL CONTINUE TO MONITOR.
[2017-04-14 04:17] LABS: BASOPHILS 0.3 % (0-2); EOSINOPHILS 2.7 % (0-7); HEMATOCRIT 28.4 % (42.0-54.0); HEMOGLOBIN 8.9 g/dL (13.5-17.5); IMMATURE GRANULOCYTES 0.3 % (0-5); LYMPHOCYTES 12.6 % (15-50); MCH 27.2 pg (26.0-34.0); MCHC 31.3 g/dL (31.0-37.0); MCV 86.9 fL (80.0-100.0); MEAN PLATELET VOLUME 9.8 fL (7.4-10.4); MONOCYTES 17.2 % (2-11); NEUTROPHILS 66.9 % (40-80); PLATELET COUNT 205 10x3/uL (130-400); RBC 3.27 10x6/uL (4.20-6.10); RDW 19.5 % (11.5-14.5)
[2017-04-14 04:22] LABS: ANION GAP 11.8 mmol/L (8-16); CALCIUM 8.2 mg/dL (8.5-10.1); CREATININE - SERUM 1.4 mg/dL (0.6-1.3); MAGNESIUM - SERUM 1.9 mg/dL (1.8-2.4); POTASSIUM - SERUM 3.8 mmol/L (3.5-5.1)
--- NOTE | 2017-04-14 05:00 | NUR ---
PT LAYING IN BED RESTING. DENIES NEEDS AT THIS TIME. CALL LIGHT WITHIN REACH. BED IN LOWEST POSITION. WILL CONTINUE TO MONITOR.
--- NOTE | 2017-04-14 13:05 | NUR ---
TRANSFERRED TO ROOM 2222 VIA WC. TO BED WITH ASSISTANCE. IV TO PUMP TO INFUSE @100CC/HR. CT INTACT AND CONNECTED TO THORA SEAL.
--- NOTE | 2017-04-14 13:10 | NUR ---
PATIENT RECEIVED TO FLOOR FROM ICU VIA WHEELCHAIR. PATIENT A/O X4. NO SIGNS OF DISTRESS NOTED. CHEST TUBE TO RIGHT SIDE TO WATER SEAL. IV TO LEFT WRIST PATENT. NO REDNESS OR INFLAMMATION NOTED. IVF INFUSING WITHOUT DIFFICULTY. FAMILY AT BEDSIDE. ORIENTED TO ROOM. DENIES NEED.S BED IN LOW POSITION. CALL LIGHT IN REACH. SIDE RAILS UP X2.
--- NOTE | 2017-04-14 16:00 | NUR ---
IV TO LEFT WRIST LEAKING. IV D/C WITH CATH TIP INTACT. SITE COVERED WITH GAUZE AND BANDAID. NEW 22 GAUGE IV SITED TO LEFT FOREARM X1 ATTEMPT. FLUSHES EASY WITH BRISK BLOOD RETURN PRESENT. SECURED WITH TAPE AND TEGADERM. IVF INFUSING WITHOUT DIFFICULTY. BED IN LOW POSITION. CALL LIGHT IN REACH. SCD ON BILATERALLY.
--- NOTE | 2017-04-14 17:15 | NUR ---
PATIENT ALERT IN LEFT LATERAL POSITION. C/O PAIN TO TAILBONE. REDNESS TO COCCYX NOTED THAT IS BLANCHABLE. NO OPEN AREAS NOTED. REPOSITIONED PILLOW. DENIES NEEDS. PRESENT. SIDE RAILS UP X2. BED IN LOW POSITION. CALL LIGHT IN REACH.
--- NOTE | 2017-04-15 04:00 | NUR ---
RN NOTE: PT RESTING QUIETLY IN SUPINE POSITION WITH EYES CLOSED. IV IN LEFT FA SALINE LOCKED WITH NS INFUSING AT 30 ML / HR. WILL CONTINUE TO MONITOR FOR NEEDS.
[2017-04-15 04:06] VITALS: BP 115/58
[2017-04-15 05:59] LABS: BASOPHILS 0.6 % (0-2); EOSINOPHILS 4.6 % (0-7); HEMATOCRIT 27.4 % (42.0-54.0); HEMOGLOBIN 8.7 g/dL (13.5-17.5); IMMATURE GRANULOCYTES 0.4 % (0-5); LYMPHOCYTES 15.6 % (15-50); MCH 27.6 pg (26.0-34.0); MCHC 31.8 g/dL (31.0-37.0); MEAN PLATELET VOLUME 9.3 fL (7.4-10.4); MONOCYTES 15.8 % (2-11); PLATELET COUNT 222 10x3/uL (130-400); RBC 3.15 10x6/uL (4.20-6.10); RDW 19.3 % (11.5-14.5)
[2017-04-15 06:06] LABS: APTT 36.1 SECONDS (22.8-39.4); INR 1.19 (0.85-1.17)
[2017-04-15 06:22] LABS: ANION GAP 9.5 mmol/L (8-16); CALCIUM 8.7 mg/dL (8.5-10.1); CARBON DIOXIDE 30.2 mmol/L (21.0-32.0); CREATININE - SERUM 1.5 mg/dL (0.6-1.3); MAGNESIUM - SERUM 2.1 mg/dL (1.8-2.4); POTASSIUM - SERUM 3.7 mmol/L (3.5-5.1)
--- NOTE | 2017-04-15 07:45 | NUR ---
RATES PAIN A 5, NORCO GIVEN PER MAR, DENIES OTHER NEEDS, NO DISTRESS NOTED, SON AT BEDISDE, BED LOWEST POSITION, CALL LIGHT IN REACH, WILL CONTINUE TO MONITOR
[2017-04-15 10:00] VITALS: BP 109/53
--- NOTE | 2017-04-15 11:30 | NUR ---
PT SITTING UP ON SIDE OF BED. NO VISABLE SIGNS OF PAIN OR DISCOMFORT AT THIS TIME. BED IN LOW POSITIO AND CALL LIGHT WITHIN REACH. WILL CONTINUE TO MONITOR.
[2017-04-15 12:20] VITALS: BP 134/69
[2017-04-15 16:06] VITALS: BP 136/67
[2017-04-15 20:00] VITALS: BP 112/69
[2017-04-16] VITALS: BP 124/61
--- NOTE | 2017-04-16 02:07 | NUR ---
PT SLEEPING. WATER SEAL CHEST TUBE FUNCTIONING PROPERLY. RESP EVEN, UNLABORED. NO DISTRESS NOTED. CONTINUE LAN ENGINEER'S PLAN OF CARE.
[2017-04-16 04:00] VITALS: BP 115/62
[2017-04-16 04:39] LABS: BASOPHILS 0.6 % (0-2); EOSINOPHILS 3.1 % (0-7); HEMATOCRIT 26.5 % (42.0-54.0); HEMOGLOBIN 8.7 g/dL (13.5-17.5); IMMATURE GRANULOCYTES 0.2 % (0-5); LYMPHOCYTES 14.4 % (15-50); MCH 28.5 pg (26.0-34.0); MCHC 32.8 g/dL (31.0-37.0); MCV 86.9 fL (80.0-100.0); MEAN PLATELET VOLUME 8.9 fL (7.4-10.4); MONOCYTES 15.9 % (2-11); NEUTROPHILS 65.8 % (40-80); PLATELET COUNT 225 10x3/uL (130-400); RBC 3.05 10x6/uL (4.20-6.10); RDW 18.7 % (11.5-14.5); WBC 6.4 10x3/uL (4.8-10.8)
[2017-04-16 04:48] LABS: ANION GAP 7.1 mmol/L (8-16); CALCIUM 8.4 mg/dL (8.5-10.1); CARBON DIOXIDE 31.3 mmol/L (21.0-32.0); CREATININE - SERUM 1.4 mg/dL (0.6-1.3); POTASSIUM - SERUM 3.4 mmol/L (3.5-5.1)
--- NOTE | 2017-04-16 07:20 | NUR ---
REPORT RECEIVED FROM NURSE. CALL LIGHT IN REACH.
--- NOTE | 2017-04-16 08:13 | NUR ---
AWAKE AND ALERT. SITTING UP IN BED READING NEWSPAPER. DENIES NEEDS. LUNGS ARE DIMINISHED THROUGHOUT LUNG SALAZAR. CHEST TUBE TO RIGHT CHEST PATENT WITH SCANT BLOODY DISCHARGE. DENIES PRODUCTIVE COUGH.
[2017-04-16 08:31] VITALS: BP 110/56
--- NOTE | 2017-04-16 09:30 | NUR ---
CHEST TUBE REMOVED PER RADIOLOGY NURSE. PATIENT TOLERATED IT WELL.
--- NOTE | 2017-04-16 11:03 | NUR ---
ASSESSMENT COMPLETED. AM MEDS ADMINISTERED. URINAL GIVEN TO PATIENT FOR MEASUREMENT OF URINE. SPUTUM CUP GIVEN TO PATIENT FOR SPUTUM SAMPLE. REFUSES SCDs AT THIS TIME. CALL LIGHT IN REACH. WILL CONTINUE WITH PLAN OF CARE.
--- NOTE | 2017-04-16 12:20 | NUR ---
EATING LUNCH AT THIS TIME. CALL LIGHT IN REACH.
[2017-04-16 12:28] VITALS: BP 124/60
--- NOTE | 2017-04-16 13:42 | NUR ---
CM REASSESSMENT NOTE: PATIENT IS DISCHARGING HOME TODAY/TRAVIS (DAUGHTER) DRIVING HIM. PATIENT AND STATED HOME HEALTH WAS NOT NEEDED - NO OTHER NEEDS EXPRESSED FOR DISCHARGE. IMM SERVED
--- NOTE | 2017-04-16 14:28 | NUR ---
IV X2 DC'D WITH TIP INTACT.
--- NOTE | 2017-04-16 14:55 | NUR ---
DC INSTRUCTIONS EXPLAINED TO PATIEN, , AND DAUGHTER. VERBALIZED UNDERSTANDING. DC'D TO VEHICLE VIA WC WITH FAMILY.
== END 2017-04-16 14:55 | disposition home or self-care (01) | DRG 199 ==
LOC: D.CT 07:52 → D.OPS 07:52 → D.M2 07:52 → D.CT 09:30 → D.M2 14:23 → D.OPS 14:24 → D.M2 14:25 → D.ICU 14:25 → D.CT 15:00 → D.ICU 04-10 11:24 → D.MS 04-14 13:07
PROVIDERS: Family Medicine; General Practice; Internal Medicine Pulmonary Disease; Specialist; ADMIT Radiology Diagnostic Radiology
PROC: 0W9930Z Drainage of Right Pleural Cavity with Drainage Device, Percutaneous Approach (ICD-10-PCS; 2017-04-09)
PROC: 0W993ZZ Drainage of Right Pleural Cavity, Percutaneous Approach (ICD-10-PCS; principal; 2017-04-09 09:30)
DX: J95.811 Postprocedural pneumothorax (principal); I50.23 Acute on chronic systolic (congestive) heart failure; J90 Pleural effusion, not elsewhere classified; D62 Acute posthemorrhagic anemia; I42.0 Dilated cardiomyopathy; K76.6 Portal hypertension; I13.0 Hypertensive heart and chronic kidney disease with heart failure and stage 1 through stage 4 chronic kidney disease, or unspecified chronic kidney disease; Y83.8 Other surgical procedures as the cause of abnormal reaction of the patient, or of later complication, without mention of misadventure at the time of the procedure; I48.91 Unspecified atrial fibrillation; D63.8 Anemia in other chronic diseases classified elsewhere; Z95.0 Presence of cardiac pacemaker; K74.60 Unspecified cirrhosis of liver; G47.33 Obstructive sleep apnea (adult) (pediatric); I08.3 Combined rheumatic disorders of mitral, aortic and tricuspid valves; I27.2 Other secondary pulmonary hypertension; R68.81 Early satiety; R63.4 Abnormal weight loss; N18.9 Chronic kidney disease, unspecified

== ENCOUNTER 2017-05-18 08:33 | Outpatient (CLI) | payer MEDICARE ==
--- NOTE | 2017-05-18 19:10 | NUR ---
1849--IV DC'D. DISCHARGE INSTRUCTIONS GIVEN, PT VERBALZIES UNDERSTANDING. PT OFF UNIT VIA WC. REN FORDE
== END 2017-05-18 18:50 | disposition home or self-care (01) ==
LOC: D.OPS 08:33
DX: D64.9 Anemia, unspecified (principal)

== ENCOUNTER → 2017-07-09 10:22 | Outpatient (CLI) | payer MEDICARE ==
[~2017-07-09 10:22] MED LIST changes: +ALDACTONE25 MG PO; +MULTAQ400 MG; +MULTAQ400 MG PO; +PROBIOTIC1 EAC1 PO; +VITAMIN E400 UNI2 PO
[2017-07-09 11:47] LABS: INR 1.21 (0.85-1.17); PROTIME 14.9 SECONDS (11.6-15.0)
[2017-07-09 12:04] LABS: BILIRUBIN - DIRECT 0.3 mg/dL (0.00-0.30); BILIRUBIN - INDIRECT 0.32 mg/dL (0.00-1.00); BILIRUBIN - TOTAL 0.62 mg/dL (0.2-1.3); PROTEIN - SERUM 6.9 g/dL (6.4-8.2); T4 THYROXINE 11.4 ug/dL (4.7-13.3); THYROID STIMULATING HORMONE 8.78 uIU/mL (0.36-3.74)
[2017-07-09 12:40] LABS: ERYTHROCYTE SEDIMENTATION RATE 50 mm/hr (0-20)
[2017-07-10 10:19] LABS: ANA REFLEX - DIRECT Negative (Negative)
[2017-07-10 18:09] LABS: HEPATITIS C ANTIBODY 0.1 (0.0-0.9)
[2017-07-11 14:22] LABS: MITOCHONDRIAL ANTIBODY 7.8 Units (0.0-20.0); SMOOTH MUSCLE ABS (ACTIN) 12 Units (0-19)
[2017-07-12 09:17] LABS: HCVGENO - HEP C QUANT HCV Not Detected IU/mL (())
== END | disposition home or self-care (01) ==
LOC: D.US 10:22
PROVIDERS: Internal Medicine Gastroenterology
DX: K74.60 Unspecified cirrhosis of liver (principal); I48.91 Unspecified atrial fibrillation; I25.10 Atherosclerotic heart disease of native coronary artery without angina pectoris; D64.9 Anemia, unspecified

== ENCOUNTER 2017-07-25 05:34 | Outpatient (CLI) | payer MEDICARE ==
[~2017-07-25] VITALS: Ht 167.6 cm; Wt 67.3 kg
[~2017-07-25 05:34] MED LIST changes: -ALDACTONE25 MG PO; -MULTAQ400 MG; -MULTAQ400 MG PO; -PROBIOTIC1 EAC1 PO; -VITAMIN E400 UNI2 PO
[2017-07-25] MEDS ORDERED: MULTAQ400 MG PO (06:24)
[2017-07-25] MEDS ORDERED: MULTAQ400 MG (06:25)
[2017-07-25] MEDS ORDERED: VITAMIN E400 UNI2 PO (06:26)
[2017-07-25] MEDS ORDERED: PROBIOTIC1 EAC1 PO (06:27)
[2017-07-25 06:41] LABS: BASOPHILS 0.4 % (0-2); EOSINOPHILS 3.7 % (0-7); HEMATOCRIT 28.6 % (42.0-54.0); IMMATURE GRANULOCYTES 0.2 % (0-5); MCHC 31.5 g/dL (31.0-37.0); MCV 95.3 fL (80.0-100.0); MEAN PLATELET VOLUME 8.7 fL (7.4-10.4); MONOCYTES 14.8 % (2-11); NEUTROPHILS 62.9 % (40-80); PLATELET COUNT 171 10x3/uL (130-400); WBC 5.7 10x3/uL (4.8-10.8)
[2017-07-25 06:52] VITALS: BP 116/63; Ht 167.6 cm; Wt 67.3 kg
[2017-07-25 06:53] LABS: APTT 37.7 SECONDS (22.8-39.4); INR 1.24 (0.85-1.17); PROTIME 15.1 SECONDS (11.6-15.0)
[2017-07-25 07:00] LABS: ALBUMIN 2.8 g/dL (3.4-5.0); ANION GAP 9.6 mmol/L (8-16); BILIRUBIN - TOTAL 0.53 mg/dL (0.2-1.3); CALCIUM 8.6 mg/dL (8.5-10.1); CARBON DIOXIDE 31.6 mmol/L (21.0-32.0); CREATININE - SERUM 1.5 mg/dL (0.6-1.3); POTASSIUM - SERUM 4.2 mmol/L (3.5-5.1); PROTEIN - SERUM 6.4 g/dL (6.4-8.2)
--- NOTE | 2017-07-25 07:27 | NUR ---
STARTED 20 GAUGE IV IN LEFT AC. 1 ATTEMPT.
--- NOTE | 2017-07-25 10:49 | NUR ---
0930--ALL VITAL SIGNS CHARTED ON POST PROCEDURE VITAL SIGN SHEET ON CHART. REN FORDE
--- NOTE | 2017-07-25 13:40 | NUR ---
1300--IV DC'D, PT UP TO DRESS AT THIS TIME. REN FORDE 1320--DISCHARGE INSTRUCTIONS GIVEN, PT VERBALIZES UNDERSTANDING. PT OFF UNIT VIA WC. REN FORDE
== END 2017-07-25 13:20 | disposition home or self-care (01) ==
LOC: D.OPS 05:34 → D.CT 08:00 → D.OPS 08:00 → D.CT 11:00 → D.OPS 13:20
PROVIDERS: General Practice; Internal Medicine Gastroenterology
DX: R18.8 Other ascites (principal); K74.60 Unspecified cirrhosis of liver; G47.30 Sleep apnea, unspecified; Z01.812 Encounter for preprocedural laboratory examination

== ENCOUNTER → 2017-08-15 10:41 | Outpatient (CLI) | payer MEDICARE ==
[2017-07-25 06:52] VITALS: BMI 23.9
[~2017-08-15 10:41] MED LIST changes: +ALDACTONE25 MG PO; +MULTAQ400 MG; +MULTAQ400 MG PO; +PROBIOTIC1 EAC1 PO; +VITAMIN E400 UNI2 PO
== END | disposition home or self-care (01) ==
LOC: D.LAB 10:41
DX: K74.60 Unspecified cirrhosis of liver (principal)

== ENCOUNTER 2017-09-03 05:45 | Outpatient (CLI) | payer MEDICARE ==
[~2017-09-03] VITALS: Ht 167.6 cm; Wt 66.7 kg
--- NOTE | ~2017-09-03 | HEMODYNAMI ---
PATIENT:GABI OSWALD MEDICAL RECORD: [id number] : 38 LOCATION:[facility] ADMISSION DATE: 09/03/17 Generatedon:09/03/20178:46 Patient name: GABI OSWALD Patient #: [id number] SSN: : 1940 Date of study: 09/03/2017 Page: Of Hemodynamic Procedure Report Patient Data Patient Demographics Procedure consent was obtained First Name: GABI Gender: Male Last Name: MARGRET : 1940 [facility] Initial: DANELLE Age: 76 year(s) Patient #: [id number] Race: Unknown Additional ID: [id number] Contact details Address: [place] [address] State: [place] City: [place] Zip code: [address] Past Medical History Allergies Allergen Reaction Date Comments Reported Cephalosporins 11/22/2016 Other allergy 09/03/2017 ceftin Admission Admission Data Admission Date: 09/03/2017 Admission Time: 5:45 Procedure Procedure Types Cath Procedure Peripheral Cath Diagnostic Procedure Miscellaneous PARACENTESIS WITH GUIDE Procedure Description Procedure Date Procedure Date: 09/03/2017 Procedure Start Time: 8:18 Procedure Staff Name Function Vance Camacho MD Performing Physician Mely Cueva RT Monitor Ginna Pugh RN Nurse Leon Dickerson RT Scrub Procedure Medications Medication Administration Route Dosage Versed I.V. 1 mg Fentanyl I.V. 50 mcg Hemodynamics Rest Heart Rate: 78 (bpm) Snapshots Pre Cath Intra NCS Post Cath Vital Signs Time Heart Resp SPO2 etCO2 NIBP (mmHg) Rhythm Pain Sedation Rate (ipm) (%) (mmHg) Status Level (bpm) 8:13:12 94 0 Measuring NSR 0 (11) 10(A) , No pain 8:13:49 94 0 131/39(90) NSR 0 (11) 10(A) , No pain 8:18:03 77 72 94 0 114/68(94) NSR 0 (11) 10(A) , No pain 8:23:02 77 25 96 1.5 Measuring NSR 0 (11) 10(A) , No pain 8:23:08 77 24 96 3.7 118/69(101) NSR 0 (11) 10(A) , No pain 8:27:18 77 18 96 5.2 117/75(95) NSR 0 (11) 10(A) , No pain 8:31:30 62 16 93 3 105/58(85) NSR 0 (11) 10(A) , No pain 8:35:38 75 13 96 4.5 108/65(82) NSR 0 (11) 10(A) , No pain 8:39:48 60 21 95 3.7 118/66(89) NSR 0 (11) 10(A) , No pain 8:44:00 75 15 97 3 116/69(98) NSR 0 (11) 10(A) , No pain Medications Time Medication Route Dose Verified Delivered Reason Notes Effectivenes s by by 8:23:57 Versed I.V. 1 mg Vance Chacko for Doug Pugh RN sedation 8:24:09 Fentanyl I.V. 50 Vance Chacko for [facility] Doug Pugh RN sedation Procedure Log Time Note 8:03:23 Ginna Pugh RN sent for patient. Start room use. 8:03:44 Time tracking: Regular hours 8:03:59 Plan of Care:Hemodynamics will remain stable., Cardiac rhythm will remain stable., Comfort level will be maintained., Respiratory function will remain adequate., Patient/ family verbilizes understanding of procedure., Procedure tolerated without complication., Recovers from procedure without complications.. 8:04:24 Patient arrived from Outpatients to IR. Patient remains on bed/stretcher for procedure. 8:04:31 Correct patient and procedure confirmed by team. 8:04:38 Signed procedure consent form obtained from patient. 8:04:40 ECG and BP/O2 sat monitors applied to patient. 8:04:46 Full Disclosure recording started 8:04:50 8:05:12 H&P Date Dictated: 09/03/2017 H&P Addendum completed by physician on day of procedure. (MUST COMPLETE FOR ALL OUTPATIENTS). 8:05:17 Pre-procedure instructions explained to patient. 8:05:18 Pre-op teaching completed and patient verbalized understanding. 8:05:29 Family in patients room. 8:05:38 Patient NPO since Midnight. 8:06:18 Patient allergic to Other allergyceftin 8:06:29 Is the patient allergic to Iodine/contrast media? No. 8:06:55 Is patient on blood thinner?No 8:07:02 Patient diabetic? No. 8:07:10 8:07:15 ----Pre-sedation anethsthesia assessment.---- 8:07:23 Snore? Yes 8:07:26 Previous problem with sedation/anesthesia? No ? 8:07:31 Sleep apnea? Yes 8:07:35 Deviated septum? No 8:07:38 Opens mouth fully? Yes 8:07:43 Sticks out tongue? Yes 8:07:50 Airway obstruction? No ? 8:07:59 Airway obstruction? No ? 8:08:09 Dentures? No ? 8:08:13 8:08:25 Patient pain scale 0/10 ?. 8:08:52 IV patent on arrival in left antecubital with 0.9% NaCl at [facility]. 8:09:22 Right abdomen area was prepped with chlora-prep and draped in sterile fashion 8:09:27 Alarms reviewed by Olesya Doss 8:09:29 Sharps counted by scrub and verified by R.N. 8:10:00 Use device set IR Diagnostic 8:10:06 Sterile Angiographic Pack opened to sterile field. 8:11:23 Vital chart was started 8:11:28 Baseline sample Acquired. 8:17:34 Physician arrived 8:17:36 --------ALL STOP TIME OUT------ 8:17:42 Final Timeout: patient, procedure, and site verified with staff and physician. All members of the team are in agreement. 8:17:52 Right abdomen site verified by team. 8:18:15 Sedation plan: IV Moderate Sedation Medication:Versed, Fentanyl 8:18:33 Procedure started. 8:18:52 Local anesthetic to Abdominal area with Lidocaine 1% by Vance Camacho MD.INITIAL ACCESS ONLY 8:19:03 [id number] 8FR CATH DRAIN TRAY opened to sterile field. 8:23:57 Versed 1 mg I.V. was administered by Ginna Pugh RN; for sedation; 8:24:09 Fentanyl 50 mcg I.V. was administered by Ginna Pugh RN; for sedation; 8:41:02 2.8 liters drained 8:41:14 Procedure ended.(Physican Out) 8:41:27 Sharps counted by scrub and verified by R.N. 8:41:47 Insertion/operative site no bleeding no hematoma. 8:41:59 Post-op/insertion site Right Abdominal area dressed using a 4 x 4 and Tegaderm. 8:42:13 Post Abdominal area:stable 8:42:32 Post procedure instruction explained to patient.Patient verbalizes understanding. 8:42:37 Procedure and supply charges have been captured, reviewed, submitted and are correct. 8:45:02 Report given to Outpatients. 8:45:19 Patient transfered to Outpatients with Stretcher. 8:46:00 Vital chart was stopped Device Usage Item Name Manufacture Quantity Catalog Hospital Part Current Mini mal Lot# / Number Charge Number Stock Stock Serial# Code Sterile Cardinal 1 [id number] Angiographic Health Pack [id number] CareFusion 1 [id number] 8FR CATH DRAIN TRAY Signature Audit [place] Stage Time Signature Unsigned Intra-Procedure 09/03/2017 Mely 8:45:56 AM Nannerman RT (R) (CV) Signatures Monitor : Mely Signature : Hammad RT Date : Time : [facility] [address] [place] [address]
[~2017-09-03 05:45] MED LIST changes: -ALDACTONE25 MG PO
[2017-09-03 06:31] LABS: BASOPHILS 0.5 % (0-2); EOSINOPHILS 3.6 % (0-7); HEMATOCRIT 33.1 % (42.0-54.0); HEMOGLOBIN 10.5 g/dL (13.5-17.5); IMMATURE GRANULOCYTES 0.3 % (0-5); MCH 30.6 pg (26.0-34.0); MCHC 31.7 g/dL (31.0-37.0); MCV 96.5 fL (80.0-100.0); MONOCYTES 10.8 % (2-11); NEUTROPHILS 66.8 % (40-80); PLATELET COUNT 175 10x3/uL (130-400); RBC 3.43 10x6/uL (4.20-6.10); RDW 17.7 % (11.5-14.5); WBC 6.5 10x3/uL (4.8-10.8)
[2017-09-03] MEDS ORDERED: ALDACTONE25 MG PO (06:36)
[2017-09-03] MEDS ORDERED: CHRONULAC30 ML PO (06:37)
[2017-09-03 06:41] LABS: INR 1.25 (0.85-1.17); PROTIME 15.3 SECONDS (11.6-15.0)
[2017-09-03 06:47] VITALS: BP 105/63; Ht 167.6 cm; Wt 66.7 kg
[2017-09-03 06:49] LABS: ALBUMIN 3.3 g/dL (3.4-5.0); ANION GAP 14.5 mmol/L (8-16); BILIRUBIN - TOTAL 0.54 mg/dL (0.2-1.3); CALCIUM 8.7 mg/dL (8.5-10.1); CREATININE - SERUM 1.4 mg/dL (0.6-1.3); POTASSIUM - SERUM 4.5 mmol/L (3.5-5.1); PROTEIN - SERUM 6.9 g/dL (6.4-8.2)
== END 2017-09-03 10:55 | disposition home or self-care (01) ==
LOC: D.OPS 05:45 → D.SP 08:00 → D.OPS 08:00
PROVIDERS: Internal Medicine Gastroenterology
DX: R18.8 Other ascites (principal); K74.60 Unspecified cirrhosis of liver; D50.9 Iron deficiency anemia, unspecified; Z01.812 Encounter for preprocedural laboratory examination

== ENCOUNTER 2017-11-02 05:39 | Outpatient (CLI) | payer MEDICARE ==
[~2017-11-02] VITALS: Ht 167.6 cm; Wt 63.6 kg
--- NOTE | ~2017-11-02 | HEMODYNAMI ---
PATIENT:GABI OSWALD MEDICAL RECORD: [id number] : 38 LOCATION:[facility] ADMISSION DATE: 11/02/17 Generatedon:11/02/20179:22 Patient name: GABI OSWALD Patient #: [id number] SSN: : 1940 Date of study: 11/02/2017 Page: Of Hemodynamic Procedure Report Patient Data Patient Demographics Procedure consent was obtained First Name: GABI Gender: Male Last Name: MARGRET : 1940 [facility] Initial: DANELLE Age: 76 year(s) Patient #: [id number] Race: Unknown Additional ID: [id number] Contact details Address: [place] [address] State: [place] City: [place] Zip code: [address] Past Medical History Allergies Allergen Reaction Date Comments Reported Cephalosporins 11/22/2016 Other allergy 09/03/2017 ceftin Admission Admission Data Admission Date: 11/02/2017 Admission Time: 5:39 Weight (lbs.): 140 Weight (kg.): 63.5 Procedure Procedure Types Cath Procedure Peripheral Cath Diagnostic Procedure Cath Peripheral Miscellaneous PARACENTESIS WITH GUIDE Procedure Description Procedure Date Procedure Date: 11/02/2017 Procedure Start Time: 8:42 Procedure Staff Name Function Willard Narvaez MD Performing Physician Candace Neff RT Printed Circuit Board Drafter Magaly Venegas RN Nurse Ginna Pugh RN Nurse Procedure Medications Medication Administration Route Dosage Lidocaine 1% added to field 20 Fentanyl I.V. 25 mcg Versed I.V. 0.5 mg Hemodynamics Rest Heart Rate: 73 (bpm) Snapshots Pre Cath Intra NCS Post Cath Vital Signs Time Heart Resp SPO2 etCO2 NIBP (mmHg) Rhythm Pain Sedation Rate (ipm) (%) (mmHg) Status Level (bpm) 8:51:10 73 39 27.7 Acquisition NSR 0 (11) 10(A) error , No pain 8:53:48 72 75 98 26.2 119/79(100) NSR 0 (11) 10(A) , No pain 8:58:00 84 39 29.2 107/68(94) NSR 0 (11) 10(A) , No pain 9:02:08 60 48 98 32.2 107/60(91) NSR 0 (11) 10(A) , No pain 9:06:12 82 8 98 33.6 112/70(87) NSR 0 (11) 10(A) , No pain 9:10:19 74 39 98 29.1 109/62(87) NSR 0 (11) 10(A) , No pain 9:14:23 72 27 97 24.7 120/70(94) NSR 0 (11) 10(A) , No pain 9:18:33 77 22 25.4 117/69(97) NSR 0 (11) 10(A) , No pain Medications Time Medication Route Dose Verified Delivered Reason Notes Effectivene ss by by 8:42:13 Lidocaine added 20ml Willard Lamar used for 1% to vial Solange Narvaez MD procedure field MD 8:54:20 Fentanyl I.V. 25 Willard Chacko for mcg Keaton Narvaez RN sedation 8:54:32 Versed I.V. 0.5 Willard Chacko for mg Keaton Narvaez RN sedation Procedure Log Time Note 8:07:41 Patient Weight : 140 lbs 8:22:30 Tegaderm 4 x 4 (1626W) opened to sterile field. 8:22:31 Dermabond Pen opened to sterile field. 8:22:32 CONNECTING TUBE FOR DRAINAGE BAG ([id number]) opened to sterile field. 8:22:33 [id number] 8FR CATH DRAIN TRAY opened to sterile field. 8:22:37 Time tracking: Regular hours 8:22:51 Plan of Care:Hemodynamics will remain stable., Cardiac rhythm will remain stable., Comfort level will be maintained., Respiratory function will remain adequate., Patient/ family verbilizes understanding of procedure., Procedure tolerated without complication., Recovers from procedure without complications.. 8:22:58 Patient received from Outpatients to IR Alert and oriented. Tansferred to table in Supine position. 8:23:01 Signed procedure consent form obtained from patient. 8:23:06 H&P Date Dictated: 11/02/2017 Within 30 days and on chart.. 8:23:10 Pre-procedure instructions explained to patient. 8:23:11 Pre-op teaching completed and patient verbalized understanding. 8:23:14 Family in waiting room. 8:23:16 Patient NPO since Midnight. 8:24:02 8:24:03 ----Pre-sedation anethsthesia assessment.---- 8:24:07 Previous problem with sedation/anesthesia? No ? 8:24:11 Snore? Yes 8:24:13 Sleep apnea? Yes 8:24:16 Deviated septum? No 8:24:18 Opens mouth fully? Yes 8:24:20 Sticks out tongue? Yes 8:24:34 Airway obstruction? Yes copd 8:24:41 Dentures? No ? 8:24:53 8:41:47 Physician arrived 8:41:57 --------ALL STOP TIME OUT------ 8:41:57 Final Timeout: patient, procedure, and site verified with staff and physician. All members of the team are in agreement. 8:42:06 Procedure started. 8:42:06 Full Disclosure recording started 8:42:13 Lidocaine 1% 20ml vial added to field was administered by Willard Narvaez MD; used for procedure; 8:42:20 Local anesthetic to Abdominal area with Lidocaine 1% by Willard Narvaez MD.INITIAL ACCESS ONLY 8:50:49 ECG and BP/O2 sat monitors applied to patient. 8:50:50 Vital chart was started 8:50:51 Baseline sample Acquired. 8:50:55 8:54:20 Fentanyl 25 mcg I.V. was administered by Ginna Pugh RN; for sedation; 8:54:32 Versed 0.5 mg I.V. was administered by Ginna Pugh RN; for sedation; 9:19:40 2.1 liters drained from abdomen 9:19:47 Procedure ended.(Physican Out) 9:21:39 Report given to Outpatients. 9:21:48 Patient transfered to Outpatients with Stretcher. 9:22:21 Vital chart was stopped Device Usage Item Name Manufacture Quantity Catalog Hospital Part Current Mini mal Lot# / Number Charge Number Stock Stock Serial# Code Tegaderm 4 x 4 3M 1 [id number] ([id number]) Dermabond Pen Ethicon 1 [id number] 5 CONNECTING TUBE [place] 1 [id number] FOR DRAINAGE Scientific BAG ([id number]) [id number] CareFusion 1 [id number] 5 8FR CATH DRAIN TRAY Signature Audit [place] Stage Time Signature Unsigned Intra-Procedure 11/02/2017 Candace Neff 9:22:17 AM RT(R) [facility] [address] [place] [address]
[~2017-11-02 05:39] MED LIST changes: +ALDACTONE25 MG PO
[2017-11-02 06:21] VITALS: BP 128/72; Ht 167.6 cm; Wt 63.6 kg
[2017-11-02 07:02] LABS: BASOPHILS 0.3 % (0-2); EOSINOPHILS 2.9 % (0-7); HEMATOCRIT 32.1 % (42.0-54.0); HEMOGLOBIN 10.3 g/dL (13.5-17.5); IMMATURE GRANULOCYTES 0.3 % (0-5); MCH 31.7 pg (26.0-34.0); MCHC 32.1 g/dL (31.0-37.0); MCV 98.8 fL (80.0-100.0); MEAN PLATELET VOLUME 9.5 fL (7.4-10.4); MONOCYTES 11.3 % (2-11); NEUTROPHILS 67.2 % (40-80); PLATELET COUNT 158 10x3/uL (130-400); RBC 3.25 10x6/uL (4.20-6.10); RDW 15.9 % (11.5-14.5); WBC 5.8 10x3/uL (4.8-10.8)
[2017-11-02 07:11] LABS: APTT 22.3 SECONDS (22.8-39.4); INR 1.2 (0.85-1.17); PROTIME 14.7 SECONDS (11.6-15.0)
[2017-11-02 07:19] LABS: ALBUMIN 3.3 g/dL (3.4-5.0); ANION GAP 14.9 mmol/L (8-16); BILIRUBIN - TOTAL 0.65 mg/dL (0.2-1.3); CALCIUM 8.4 mg/dL (8.5-10.1); CARBON DIOXIDE 26.5 mmol/L (21.0-32.0); CREATININE - SERUM 1.5 mg/dL (0.6-1.3); POTASSIUM - SERUM 4.4 mmol/L (3.5-5.1); PROTEIN - SERUM 6.6 g/dL (6.4-8.2)
== END 2017-11-02 10:30 | disposition home or self-care (01) ==
LOC: D.SP 05:39 → D.CT 08:00 → D.SP 08:00 → D.CT 13:00
PROVIDERS: General Practice; Internal Medicine Gastroenterology
DX: K74.60 Unspecified cirrhosis of liver (principal); R18.8 Other ascites; D50.9 Iron deficiency anemia, unspecified; Z01.812 Encounter for preprocedural laboratory examination

== ENCOUNTER 2018-01-08 05:33 | Outpatient (CLI) | payer MEDICARE ==
[~2018-01-08] VITALS: Ht 167.6 cm; Wt 68.6 kg
[2018-01-08 05:57] LABS: BASOPHILS 0.1 % (0-2); EOSINOPHILS 3.8 % (0-7); HEMATOCRIT 35.9 % (42.0-54.0); HEMOGLOBIN 11.7 g/dL (13.5-17.5); IMMATURE GRANULOCYTES 0.4 % (0-5); LYMPHOCYTES 17.4 % (15-50); MCH 29.5 pg (26.0-34.0); MCHC 32.6 g/dL (31.0-37.0); MCV 90.7 fL (80.0-100.0); MEAN PLATELET VOLUME 9.1 fL (7.4-10.4); MONOCYTES 12.4 % (2-11); NEUTROPHILS 65.9 % (40-80); PLATELET COUNT 146 10x3/uL (130-400); RBC 3.96 10x6/uL (4.20-6.10); RDW 14.5 % (11.5-14.5); WBC 7.1 10x3/uL (4.8-10.8)
[2018-01-08 06:11] LABS: APTT 34.3 SECONDS (22.8-39.4); INR 1.24 (0.85-1.17); PROTIME 15.2 SECONDS (11.6-15.0)
[2018-01-08 06:29] VITALS: BP 124/63; Ht 167.6 cm; Wt 68.6 kg
[2018-01-08 06:49] LABS: ALBUMIN 3.3 g/dL (3.4-5.0); ANION GAP 15.6 mmol/L (8-16); CARBON DIOXIDE 25.8 mmol/L (21.0-32.0); CREATININE - SERUM 1.5 mg/dL (0.6-1.3); POTASSIUM - SERUM 4.4 mmol/L (3.5-5.1)
== END 2018-01-08 10:00 | disposition home or self-care (01) ==
LOC: D.SP 05:33
PROVIDERS: Radiology Diagnostic Radiology
DX: R18.8 Other ascites (principal); Z01.812 Encounter for preprocedural laboratory examination

== ENCOUNTER → 2018-02-12 19:07 | Outpatient (CLI) | payer MEDICARE ==
[2018-01-08 06:29] VITALS: BMI 24.4
[2018-02-12 19:34] LABS: ANION GAP 14.3 mmol/L (8-16); CALCIUM 8.9 mg/dL (8.5-10.1); CARBON DIOXIDE 28.5 mmol/L (21.0-32.0); CREATININE - SERUM 1.4 mg/dL (0.6-1.3); POTASSIUM - SERUM 4.8 mmol/L (3.5-5.1)
== END | disposition home or self-care (01) ==
LOC: D.LABREF 19:07
PROVIDERS: Internal Medicine Cardiovascular Disease
DX: I42.9 Cardiomyopathy, unspecified (principal)

== ENCOUNTER → 2018-10-16 09:41 | Outpatient (CLI) | payer MEDICARE ==
[2018-01-08 06:29] VITALS: BMI 24.4
== END | disposition home or self-care (01) ==
LOC: D.US 09:41
PROVIDERS: ATTEND Nurse Practitioner Acute Care
DX: B18.2 Chronic viral hepatitis C (principal)

== ENCOUNTER 2018-11-14 08:45 | Outpatient (CLI) | payer MEDICARE ==
[~2018-11-14] VITALS: Ht 167.6 cm; Wt 64.1 kg
[2018-11-14 09:04] LABS: BASOPHILS 0.5 % (0-2); EOSINOPHILS 2.7 % (0-7); HEMATOCRIT 40.5 % (42.0-54.0); HEMOGLOBIN 13.4 g/dL (13.5-17.5); IMMATURE GRANULOCYTES 0.2 % (0-5); MCH 30.9 pg (26.0-34.0); MCHC 33.1 g/dL (31.0-37.0); MCV 93.3 fL (80.0-100.0); MEAN PLATELET VOLUME 9.2 fL (7.4-10.4); MONOCYTES 13.4 % (2-11); NEUTROPHILS 66.2 % (40-80); PLATELET COUNT 143 10x3/uL (130-400); RBC 4.34 10x6/uL (4.20-6.10); RDW 13.8 % (11.5-14.5); WBC 6.4 10x3/uL (4.8-10.8)
[2018-11-14 09:27] LABS: INR 1.27 (0.85-1.17); PROTIME 15.3 SECONDS (11.6-15.0)
[2018-11-14 09:28] LABS: APTT 33.1 SECONDS (22.8-39.4)
[2018-11-14] MEDS ORDERED: BETAPACE 80 MG80 MG PO (09:29)
[2018-11-14 09:30] LABS: ALBUMIN 3.6 g/dL (3.4-5.0); ANION GAP 10.2 mmol/L (8-16); BILIRUBIN - TOTAL 1.01 mg/dL (0.2-1.3); CALCIUM 9.4 mg/dL (8.5-10.1); CARBON DIOXIDE 30.5 mmol/L (21.0-32.0); CREATININE - SERUM 1.3 mg/dL (0.6-1.3); POTASSIUM - SERUM 4.7 mmol/L (3.5-5.1); PROTEIN - SERUM 7.9 g/dL (6.4-8.2)
[2018-11-14] MEDS ORDERED: ULTRAM50 MG PO (10:04)
[2018-11-14] MEDS ORDERED: ACTIGALL 300 M300 MG PO (10:04)
[2018-11-14] MEDS ORDERED: FLUTICASONE PRO16 GM NASAL (10:05)
[2018-11-14 10:11] VITALS: BP 107/61; Ht 167.6 cm; Wt 64.1 kg
--- NOTE | 2018-11-14 11:25 | NUR ---
PROCEDURE NOT DONE. NO MEDS GIVEN AND IV D/C BY IR DEPT. NO ORDERS PT DISCHARGED HOME
== END 2018-11-14 11:27 | disposition home or self-care (01) ==
LOC: D.SP 08:45 → D.CT 11:00 → D.SP 11:00
PROVIDERS: Radiology Vascular & Interventional Radiology; ATTEND Family Medicine
DX: R18.8 Other ascites (principal); Z53.9 Procedure and treatment not carried out, unspecified reason; Z01.812 Encounter for preprocedural laboratory examination

== ENCOUNTER → 2018-12-25 10:23 | Outpatient (CLI) | payer MEDICARE ==
[2018-11-14 10:11] VITALS: BMI 22.8
[~2018-12-25 10:23] MED LIST changes: +ACTIGALL 300 M300 MG PO; +BETAPACE 80 MG80 MG PO
== END | disposition home or self-care (01) ==
LOC: D.US 12-05 08:00
PROVIDERS: ATTEND Internal Medicine Cardiovascular Disease
DX: I70.213 Atherosclerosis of native arteries of extremities with intermittent claudication, bilateral legs (principal); M79.605 Pain in left leg; M79.604 Pain in right leg

== ENCOUNTER → 2019-05-12 09:18 | Outpatient (CLI) | payer MEDICARE ==
[2018-11-14 10:11] VITALS: BMI 22.8
== END | disposition home or self-care (01) ==
LOC: D.US 09:18
PROVIDERS: ATTEND Nurse Practitioner Acute Care
DX: K74.60 Unspecified cirrhosis of liver (principal)

== ENCOUNTER 2020-01-02 08:39 | Outpatient (CLI) | payer MEDICARE ==
[~2020-01-02] VITALS: Ht 167.6 cm; Wt 67.7 kg
[~2020-01-02 08:39] MED LIST changes: +NORVASC2.5 MG PO
[2020-01-02 09:07] LABS: BASOPHILS 0.5 % (0-2); EOSINOPHILS 2.2 % (0-7); HEMATOCRIT 39.4 % (42.0-54.0); HEMOGLOBIN 12.4 g/dL (13.5-17.5); IMMATURE GRANULOCYTES 0.4 % (0-5); LYMPHOCYTES 14.3 % (15-50); MCH 29.3 pg (26.0-34.0); MCHC 31.5 g/dL (31.0-37.0); MCV 93.1 fL (80.0-100.0); MEAN PLATELET VOLUME 8.9 fL (7.4-10.4); MONOCYTES 14.7 % (2-11); NEUTROPHILS 67.9 % (40-80); RBC 4.23 10x6/uL (4.20-6.10); RDW 14.5 % (11.5-14.5)
[2020-01-02 09:09] LABS: PLATELET COUNT 185 10x3/uL (130-400)
[2020-01-02 09:16] LABS: APTT 33.7 SECONDS (22.8-39.4); INR 1.2 (0.85-1.17); PROTIME 15.1 SECONDS (11.6-15.0)
[2020-01-02 09:23] LABS: ALBUMIN 3.3 g/dL (3.4-5.0); ANION GAP 7.9 mmol/L (8-16); BILIRUBIN - TOTAL 0.83 mg/dL (0.2-1.3); CALCIUM 9.1 mg/dL (8.5-10.1); CARBON DIOXIDE 31.7 mmol/L (21.0-32.0); CREATININE - SERUM 1.4 mg/dL (0.6-1.3); POTASSIUM - SERUM 4.6 mmol/L (3.5-5.1); PROTEIN - SERUM 7.2 g/dL (6.4-8.2)
[2020-01-02] MEDS ORDERED: SINGULAIR10 MG PO (09:41)
[2020-01-02] MEDS ORDERED: DOXYCYCLINE HY100 M2 PO (09:41)
[2020-01-02 09:42] VITALS: BP 126/76; Ht 167.6 cm; Wt 67.7 kg
--- NOTE | 2020-01-02 12:44 | NUR ---
1220 VITAL SIGNS ARE BEING DOCUMENTED ON POST PROCEDURE FORM AND PART OF THE PAPER CHART.
--- NOTE | 2020-01-02 14:32 | NUR ---
1408 IV DC'D. CATHETER TIP INTACT. NO BLEEDING AT IV SITE. BANDAID APPLIED.
== END 2020-01-02 14:24 | disposition home or self-care (01) ==
LOC: D.CT 08:39
PROVIDERS: Specialist; ATTEND Family Medicine
DX: K74.60 Unspecified cirrhosis of liver (principal); E78.2 Mixed hyperlipidemia; I48.91 Unspecified atrial fibrillation; I50.9 Heart failure, unspecified; K21.9 Gastro-esophageal reflux disease without esophagitis; I10 Essential (primary) hypertension; J20.9 Acute bronchitis, unspecified

== ENCOUNTER → 2020-02-02 13:31 | Outpatient (CLI) | payer MEDICARE ==
[2020-01-02 09:42] VITALS: BMI 24.1
[~2020-02-02 13:31] MED LIST changes: +DOXYCYCLINE HY100 M2 PO; +SINGULAIR10 MG PO
== END | disposition home or self-care (01) ==
LOC: D.HCCECHO 13:31
PROVIDERS: ATTEND Internal Medicine Cardiovascular Disease
DX: I25.10 Atherosclerotic heart disease of native coronary artery without angina pectoris (principal)

== ENCOUNTER → 2020-02-04 09:47 | Outpatient (CLI) | payer MEDICARE ==
[2020-01-02 09:42] VITALS: BMI 24.1
== END | disposition home or self-care (01) ==
LOC: D.RT 02-02 15:00
PROVIDERS: ATTEND Internal Medicine Pulmonary Disease
DX: J44.9 Chronic obstructive pulmonary disease, unspecified (principal); J90 Pleural effusion, not elsewhere classified; Z11.59 Encounter for screening for other viral diseases